=== PATIENT | male | born 1930 | race Caucasian/White ===

== ENCOUNTER → 2017-05-05 | Outpatient (CLI) | payer OTHER ==
[~2017-05-05] MED LIST: CHLORTHALIDONE25 MG PO; FOLIC ACID1 MG PO; LOVASTAT20 PO; MOBIC7.5 MG PO; NORCO 5-325 TA1 EAC1 PO
== END ==
LOC: SPEECH 05-01 07:35 → RAD 10:46 → SPEECH 10:46
DX: R13.10 Dysphagia, unspecified (principal)

== ENCOUNTER → 2017-05-22 | Outpatient (CLI) | payer OTHER ==
[~2017-05-22] VITALS: Ht 170.2 cm; Wt 77.1 kg
[~2017-05-22] MED LIST changes: +ASPIRIN325 PO; +BROMSITE5 ML OPHTHALMIC; +CENTRUM SILVER1 EAC4 PO; +CINNAMON500 MG PO; +CITRACAL SOFT1 EACH PO; +GARLIC500 M1 PO; +IRON325 M1 PO; +KEFLEX500 MG PO; +LIPITOR 20 MG T20 M1 PO; +MILK THISTLE500 MG PO; +OMEGA-31000 M1 PO; +PRED FORTE 1% EY5 M1 OP; +PREVAGEN PO; +RED YEAST RICE600 MG PO; +TYLENOL325 MG PO; +VITAMIN B COMP1 EACH PO; +VITAMIN B-12500 MCG PO; +VITAMIN D-32000 UNIT PO
--- NOTE | ~2017-05-22 | P ---
[facility] [place] [address] PROCEDURE REPORT Name: FE GOOD Room #: REG [facility]#: [id number] Admission: 05/22/17 Attend Phys: Joey Lin MD Discharge: Date of : 31 Report #: [id number] THIS REPORT FOR: //name// CC: Joey Engel DO BRIEF HISTORY: The patient is an 86-year-old male, who was recently found to have iron deficiency anemia. It is noted he does use meloxicam. PREOPERATIVE DIAGNOSIS: Iron deficiency anemia. POSTOPERATIVE DIAGNOSES: 1. Mild erythematous gastritis. 2. Moderately large duodenal diverticulum. MEDICATIONS: Deep sedation with propofol per anesthesia. SPECIMEN: Biopsies small bowel, rule out celiac disease. ESTIMATED BLOOD LOSS: 3 mL. PROCEDURE: EGD with biopsy. FINDINGS: Prior to propofol sedation, procedure of upper endoscopy was discussed with the patient as well as potential risks and its complications. He indicates he understands and desires to proceed. DESCRIPTION OF PROCEDURE: With the patient in left lateral decubitus position, the [employer] video endoscope was inserted in the cervical esophagus under direct vision without difficulty. Examination of this organ through its entire length revealed normal esophageal mucosa throughout the length of the esophagus. No ulcers or erosions were seen. The squamocolumnar junction was unremarkable. There is no evidence of Triana mucosa. A hiatus hernia was not seen. Scope was advanced in the stomach, which was examined on end view as well as retroflexed views. There was some redness in the antrum of stomach, but the mucosa was intact. No ulcers, erosions or bleeding lesions were seen. Upon retroflexion, no abnormalities were noted. Hernia was not seen. No bleeding lesions were seen. The pylorus was normal. Duodenal bulb was normal. Duodenal sweep down to the fourth portion was normal with the exception of moderate large duodenal diverticulum in the second portion of duodenum. The mucosa was intact. In view of his iron deficiency anemia, biopsies were obtained to evaluate for celiac disease. At that point, the scope was slowly withdrawn and careful circumferential views confirmed the above findings. The patient tolerated the procedure well. CONDITION OF THE PATIENT UPON DISCHARGE: Following procedure, the patient [address] [address] PROCEDURE REPORT Name: EF GOOD Room #: REG [facility]#: [id number] Admission: 05/22/17 Attend Phys: Joey Lin MD Discharge: Date of : 31 Report #: [id number] drowsy and prepared for colonoscopy. INSTRUCTIONS TO THE PATIENT AND FAMILY AT THE TIME OF DISCHARGE: We will follow up on biopsies obtained today. I do not see any bleeding lesions. We will proceed with colonoscopy at this time. <ELECTRONICALLY SIGNED> By: Joey Lin MD 05/22/17 1225 [id number] 1206 Joey Lin MD /nt
--- NOTE | ~2017-05-22 | P ---
[facility] [place] [address] PROCEDURE REPORT Name: FE GOOD Room #: REG [facility]#: [id number] Admission: 05/22/17 Attend Phys: Joey Lin MD Discharge: Date of : 31 Report #: [id number] THIS REPORT FOR: //name// CC: Joey Engel DO BRIEF HISTORY: The patient is an 86-year-old male who was recently found to have an iron deficiency anemia. PREOPERATIVE DIAGNOSIS: Iron deficiency anemia. POSTOPERATIVE DIAGNOSES: 1. Ulcerated mass lesions, distal transverse colon. 2. Multiple sessile colon polyps. 3. Moderate diverticulosis coli, greater left colon than right colon. MEDICATIONS: Deep sedation with propofol per anesthesia. SPECIMEN: 1. Biopsy of proximal transverse colon polyp. 2. Biopsy of ulcerated malignant appearing distal transverse colon polyp. 3. Biopsy of distal transverse ulcerated mass. 4. Biopsy of polyp at 50 cm. 5. Biopsy of polyp at 40 cm. ESTIMATED BLOOD LOSS: 3 mL. PROCEDURE: Colonoscopy to cecum and terminal ileum with biopsy and Lori ink injection. FINDINGS: Prior to propofol sedation, procedure of colonoscopy discussed with the patient. He had been seen in the office recently. He indicates that he understands and desire that we proceed. DESCRIPTION OF PROCEDURE: With the patient in left lateral decubitus position, digital examination was completed which revealed no abnormalities. Subsequently, the [employer] video colonoscope was introduced into the rectum and advanced under direct vision to the cecum. This was done with minimal difficulty. The cecum was identified by the appendiceal orifice and ileocecal valve. I was able to visualize the distal segment of terminal ileum, which was inspected and noted to be unremarkable. At that point, the scope was slowly withdrawn and careful circumferential views obtained including retroflexing the scope in the ascending colon. As we withdrew the scope, the mucosa was inspected. It is noted that upon introduction of the scope, an ulcerative mass lesions were seen. Starting from the cecum as we withdrew the scope proximally, a couple diminutive polyps seen in the ascending colon were not thought to be [facility] [address] [place] [address] PROCEDURE REPORT Name: FE GOOD Room #: REG [facility].#: [id number] Admission: 05/22/17 Attend Phys: Joey Lin MD Discharge: Date of : 31 Report #: [id number] relevant to the patient's clinical health issues at this time and therefore they were not biopsied or removed. They had a typical appearance, may be small diminutive adenomas. However, in the proximal transverse colon, a sessile polyp was seen and was probably in the range of 1.5 cm. It had a smooth and benign appearance. This polyp potentially is manageable with endoscopic removal; however, once again, it was felt that removing this lesion would not have any impact on the patient's overall health status at this point due to the ulcerated mass lesion. This ulcerated mass lesion was found in the distal transverse colon. It was not obstructing, but it involved about 50% of the lumen. It was ulcerated. It was somewhat friable, but not actively bleeding. It appeared malignant and is most likely a colon carcinoma. Multiple biopsies were obtained. Following biopsies, 2 tattoos were placed lateral to the mass site. In the descending colon at 50 cm, 2 cm sessile polypoid mass lesions were seen. It had a smooth and benign appearance. This one is little larger than the one in the proximal transverse colon and probably could be managed with the scope, but again it was felt not to be relevant at this point in time. Biopsies were obtained and tattoo hickman were placed as well. At 40 cm, a small sessile 1 to 1.5 cm polyp was seen and biopsied. Again, this would be amenable to endoscopic removal but was not removed today as not to put the patient at risk for post-polypectomy bleeding in view of the overall findings. In addition, he was noted to have mild severe diverticular disease mostly of the left colon, in particular the sigmoid colon. There were also scattered diverticula in proximal colon. Scope was withdrawn in the rectum and upon retroflexion, no abnormalities were seen. No other lesions were seen on this exam. Scope was withdrawn. The patient tolerated the procedure well. CONDITION OF THE PATIENT UPON DISCHARGE: Following procedure, the patient drowsy and he will be discharged home when fully ambulatory. INSTRUCTIONS TO THE PATIENT AND FAMILY AT THE TIME OF DISCHARGE: Unfortunate situation of an 86-year-old with iron deficiency anemia who is found to have multiple colon polyps and ulcerated mass lesion which is likely carcinoma. We will discuss further with the patient and family. History of dementia noted. Patient and family need to consider options such as surgical management of the ulcerated lesion. If they pursue more aggressive approach, we could potentially manage the other lesions with the scope if needed. Again, we will discuss further with the family. <ELECTRONICALLY SIGNED> By: Joey Lin MD 05/24/17 0658 1201 1252 Joye Lin MD /nt
--- NOTE | ~2017-05-22 | S ---
[facility] [place] [address] SURGICAL PATH RPT PROCEDURE Name: DANDY GOOD Room #: REG [facility]#: [id number] Admission: 05/22/17 Date of : 31 Discharge: Report #: [id number] Path Case #: [id number] PATHOLOGY REPORT COLLECTION DATE: 05/22/2017 RECEIVED DATE: 05/22/2017 SUBMITTING PHYS: Dr. Joey Lin OTHER PHYS: Dr. Bernard Engel SPECIMEN(S) RECEIVED: A.Small bowel bx B.Bx at transverse colon proximal C.Bx at distal transverse D.Bx at polyp descending colon 50 cm E.Bx of polyp at 40 cm * * * * * * * * * * * * FINAL DIAGNOSIS: A. Small bowel mucosa, "small bowel," endoscopic biopsy: - No significant diagnostic abnormalities present. B. Large intestine, biopsy at transverse colon proximal, endoscopic biopsy: - Tubular adenoma. - Negative for high-grade dysplasia. C. 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 D. Polyp, descending colon 50 cm, endoscopic biopsy: - Tubular adenoma. - Negative for high-grade dysplasia. E. Polyp, at 40 cm, endoscopic biopsy: - Tubular adenoma. - Negative for high-grade dysplasia. COMMENT: Part C is co-reviewed by Dr. Hannah Calderon, who concurs with my diagnosis. Findings of the "distal transverse" colon biopsy tissue were discussed with Dr. Joey Lin at approximately 12:00 p.m. on 05/23/17. MSI panel (four immunohistochemical stains) are ordered on block C per [place] [facility] Protocol, and the results of these will be reported in an addendum to follow. (IUV:mgr; 05/23/2017) PATHOLOGIST: Germaine Da Silva M.D. REPORT ELECTRONICALLY SIGNED BY: Germaine Da Silva M.D. [address] [address] SURGICAL PATH RPT PROCEDURE Name: DANDY GOOD Room #: [facility]#: [id number] Admission: 05/22/17 Date of : 31 Discharge: Report #: [id number] Path Case #: [id number] DATE/TIME: 05/23/2017 18:47 * * * * * * * * * * * * GROSS PATHOLOGY: A. Received in formalin labeled "Dandy Worfausto, small bowel BX," are five segments of booth soft tissue measuring 1.2 x 0.8 x 0.3 cm in aggregate dimensions and ranging from 0.3 to 0.4 cm in maximum dimension. The specimen is submitted entirely in cassette A1. B. Received in formalin labeled "Dandy Worrel, BX at transverse colon proximal," are three segments of booth soft tissue measuring 0.7 x 0.6 x 0.3 cm in aggregate dimensions and ranging from 0.3 to 0.3 cm in maximum dimension. The specimen is submitted entirely in cassette B1. C. Received in formalin labeled "Dandy Worfausto, BX at the distal transverse ulcerative mass," are three segments of booth soft tissue measuring 0.6 x 0.7 x 0.4 cm in aggregate dimensions and ranging from 0.3 to 0.3 cm in maximum dimension. The specimen is submitted entirely in cassette C1. D. Received in formalin labeled "Dandy Worrel, BX at polyp descending colon at 50 cm," are five segments of booth soft tissue measuring 1.0 x 0.8 x 0.3 cm in aggregate dimensions and ranging from 0.2 to 0.4 cm in maximum dimension. The specimen is submitted entirely in cassette D1. E. Received in formalin labeled "Dandy Worrel, BX of polyp at 40 cm," are two segments of booth soft tissue measuring 0.6 x 0.4 x 0.2 cm in aggregate dimensions and ranging from 0.3 to 0.4 cm in maximum dimension. The specimen is submitted entirely in cassette E1. (TSD; 05/22/2017) CLINICAL HISTORY: Pre-Op diagnosis: Anemia, blood in stool Post-OP diagnosis: Ulcerative colon mass, diverticulosis, colon polyps INITIAL CPT CODE(S): A; 76986 B; 39274 C; 91953, 13762, 08943, 23687, 05571 D; 07035 E; 69352 Professional services performed by [facility] at [address] [place] [address] Technical services performed by [facility] at [address] [place] [address], [address] [address]. [address] [address] SURGICAL PATH RPT PROCEDURE Name: DANDY GOOD [id number] Admission: 05/22/17 Date of : 31 Discharge: Report #: [id number] Path Case #: [id number] [facility] [address] [place] [address] PHONE: [phone] DIRECTOR: Daniel Oseguera M.D. * * * END OF REPORT * * *
== END | disposition home or self-care (01) ==
LOC: GI 08:27
DX: C18.9 Malignant neoplasm of colon, unspecified (principal); D12.3 Benign neoplasm of transverse colon; D12.5 Benign neoplasm of sigmoid colon; K57.30 Diverticulosis of large intestine without perforation or abscess without bleeding; K29.70 Gastritis, unspecified, without bleeding; K57.10 Diverticulosis of small intestine without perforation or abscess without bleeding; I10 Essential (primary) hypertension; E78.5 Hyperlipidemia, unspecified; Z87.891 Personal history of nicotine dependence; Z98.42 Cataract extraction status, left eye; Z98.890 Other specified postprocedural states; Z79.82 Long term (current) use of aspirin; Z79.899 Other long term (current) drug therapy
CPT/HCPCS: 62110; 62900

== ENCOUNTER → 2017-06-05 | Outpatient (CLI) | payer OTHER | LOC: CAT 08:05 | PROVIDERS: Surgery | DX: C18.9 Malignant neoplasm of colon, unspecified (principal); K80.20 Calculus of gallbladder without cholecystitis without obstruction; K57.30 Diverticulosis of large intestine without perforation or abscess without bleeding; K40.90 Unilateral inguinal hernia, without obstruction or gangrene, not specified as recurrent; N40.1 Benign prostatic hyperplasia with lower urinary tract symptoms ==

== ENCOUNTER 2017-06-20 05:39 | Inpatient (IN) | payer OTHER ==
[~2017-06-20] VITALS: Ht 157.5 cm; Wt 65.8 kg
--- NOTE | ~2017-06-20 | S ---
[facility] [address] [place] [address] SURGICAL PATH RPT PROCEDURE Name: DANDY GOOD Room #: 412-P ADM IN M.R.#: [id number] Admission: 06/20/17 Date of : 31 Discharge: Report #: [id number] Path Case #: [id number] PATHOLOGY REPORT COLLECTION DATE: 06/20/2017 RECEIVED DATE: 06/20/2017 SUBMITTING PHYS: Dr. Vinay Rooney OTHER PHYS: Dr. Bernard Engel SPECIMEN(S) RECEIVED: A.Hernia sac B.Extended left hemicolectomy * * * * * * * * * * * * FINAL DIAGNOSIS: A. "Hernia sac", hernia repair: - Vascularized fibroadipose connective tissue with mesothelial lining consistent with hernia sac showing reactive mesothelial hyperplasia and acute and chronic inflammation/ulceration. B. "Extended left hemicolectomy", resection: - Invasive adenocarcinoma, moderately differentiated, measuring 2.5 cm grossly, invading into but not through the muscularis propria (pT2); surgical margins free of invasive carcinoma, closest margin (proximal) 6.5 cm away. - Tubular adenomas, multiple, measuring 1.3 cm grossly, without high-grade dysplasia; margins free of dysplasia. - Diverticulosis. - Lymph nodes (22) with no evidence of metastatic carcinoma. (22 nodes) (CLW:renee; 06/24/2017) SYNOPTIC CANCER STAGING REPORT SPECIMEN Specimen: Transverse colon Descending colon Procedure: Other: extended left hemicolectomy TUMOR Primary Tumor Site: Transverse colon Histologic Type: Adenocarcinoma Histologic Grade: Low-grade (well differentiated to moderately differentiated) Tumor Size: Greatest dimension (cm): 2.5 Additional Dimension (cm): 1.7 Tumor Deposits: Not identified Tumor Extent [address] [address] SURGICAL PATH RPT PROCEDURE Name: DANDY GOOD Room #: 412-P [facility] IN [facility].#: [id number] Admission: 06/20/17 Date of : 31 Discharge: Report #: [id number] Path Case #: [id number] Site(s) of Direct Extent of Tumor: None identified Microscopic Tumor Extension: Tumor invades muscularis propria Macroscopic Tumor Perforation: Not Identified Accessory Tumor Findings Lymph-Vascular Invasion: Not identified Perineural Invasion: Not identified MARGINS All margins uninvolved by invasive carcinoma Distance of Invasive Carcinoma from Closest Margin: Specify (cm): 6.5 Specify Margin: Proximal For Resection Specimens Only Proximal Margin: Uninvolved by invasive carcinoma Distal Margin: Uninvolved by invasive carcinoma Distance of Tumor from Margin (required only for rectal tumors): Specify (cm): 6.5 Circumferential (Radial) Margin: Not applicable Mesenteric Margin: Not applicable LYMPH NODES Regional Lymph Nodes: Number of Lymph Nodes Examined: Specify number: 22 Number of Lymph Nodes Involved: Specify number: 0 STAGE (PTNM) Primary Tumor (pT): pT2: Tumor invades muscularis propria Regional Lymph Nodes (pN): pN0: No regional lymph node metastasis ADDITIONAL FINDINGS Additional Pathologic Findings: Adenoma(s) COMMENT: The patient has a history of "invasive moderately differentiated colonic adenocarcinoma associated with tubular adenoma and extensive high-grade dysplasia" from a distal transverse endoscopic biopsy ([id number]). Clinical correlation is recommended. (CLW:renee; 06/24/2017) PATHOLOGIST: Hannah Calderon M.D. REPORT ELECTRONICALLY SIGNED BY: Hannah Calderon M.D. DATE/TIME: 06/24/2017 19:36 * * * * * * * * * * * * GROSS PATHOLOGY: A. Received in formalin labeled "Dandyantonio Good, hernia sac," [place] [address] SURGICAL PATH RPT PROCEDURE Name: DANDY GOOD Room #: 412-P [facility] IN M.R.#: [id number] Admission: 06/20/17 Date of : 31 Discharge: Report #: [id number] Path Case #: [id number] piece of fibroadipose tissue measuring 3.2 x 2.3 x 1.1 cm. No nodules or lesions are identified. Benefits Analyst tissue is submitted in cassette A1. B. The specimen is received in formalin, labeled "Dandy Good, extended left hemicolectomy suture hickman proximal end" is a subtotal colectomy specimen measuring 51.8 cm in length with diameters ranging from 1.5-4.1 cm. Each margin is closed with a line of laci. The proximal margin is marked with a black suture. The lumen contains brown green soft fecal material. The mucosa is remarkable for three separate lesions. The most proximal lesion is located 6.5 cm from the proximal margin and measures 2.5 x 1.7 cm and is raised up to 0.4 cm off the mucosal surface. There is a booth-brown, ragged, focally ulcerated appearance. Lesion focally extends into the muscularis layer. The lesion grossly extends to within 4.5 cm of the closest radial margin. The second lesion is located 17.5 cm from the proximal margin and consists of a thickened, nodular fold of mucosa measuring 1.3 x 0.7 x 0.5 cm. The lesion has a booth, focally indurated cut surface and focally extends into the submucosal layer. No additional abnormalities are noted with this lesion. The third lesion is located 24.1 cm from the distal margin and consists of a pink-red, nodular, rubbery lesion measuring 1.3 x 0.5 x 0.5 cm. The cut surface of the lesion does not show any focal gross invasion. The remaining mucosa is booth-he, velvety and shows its normal semi-lunar folds. Several diverticula are noted measuring up to 1.7 cm. No gross rupture is identified. Several possible lymph nodes are noted in the surrounding adipose tissue measuring up to 0.5 cm. No additional abnormalities are noted. Benefits Analyst sections are submitted as follows: B1 - proximal margin B2 - distal margin B3 - radial margin B4-B5 - most proximal lesion B6 - second described lesion, bisected, entirely submitted B7-B8 - third described lesion, bisected, entirely submitted B9 - marketing sales representative sections of proximal bowel B10 - represents sections of distal bowel B11 - diverticula B12-B13 - five possible lymph nodes, each cassette B14-B16 - four possible lymph nodes, each cassette (Mamadou; 06/23/2017) CLINICAL HISTORY: Malignant neoplasm of colon INITIAL CPT CODE(S): [facility] [place] [address] SURGICAL PATH RPT PROCEDURE Name: FLORENTINODANDY K Room #: 412-P ADM IN M.R.#: [id number] Admission: 06/20/17 Date of : 31 Discharge: Report #: [id number] Path Case #: [id number] A; [id number] B; [id number] Professional services performed by [facility] at [facility] [address], [place] [address] Technical services performed by [facility] at [address] [place] [address], [place] [address]. [facility] [address] [place] [address] PHONE: [phone] DIRECTOR: Daniel Oseguera M.D. * * * END OF REPORT * * *
--- NOTE | ~2017-06-20 | O ---
[address] [address] OPERATIVE REPORT Name: FE GOOD Room #: 412-P ADM IN M.R.#: [id number] Admission: 06/20/17 Attend Phys: Vinay Rooney MD, F Discharge: Date of : 31 Report #: [id number] THIS REPORT FOR: //name// CC: Joey Barney DATE OF SERVICE: 06/20/2017 SURGEON: Vinay Rooney MD MANAGER SOCIAL WORK: Danny Small DO SECOND TEMPORARY OFFICE ASSISTANT: Megan Calero NP PREOPERATIVE DIAGNOSES: 1. Splenic flexure colonic invasive adenocarcinoma. 2. Umbilical hernia. 3. Diabetes mellitus. 4. Hypertension. 5. Aortic stenosis. 6. Dementia. 7. Diverticulosis. POSTOPERATIVE DIAGNOSES: 1. Proximal transverse colon invasive adenocarcinoma. 2. Extensive intra-abdominal adhesions. 3. Incarcerated umbilical hernia. 4. Diabetes mellitus. 5. Hypertension. 6. Aortic stenosis. 7. Dementia. 8. Chronic sigmoid diverticulitis. PROCEDURE: 1. Laparoscopic extended left hemicolectomy with end-ascending colostomy. 2. Extensive laparoscopic lysis of adhesions. 3. Primary repair of incarcerated umbilical hernia. ANESTHESIA: General endotracheal anesthesia and local anesthetic. ESTIMATED BLOOD LOSS: 10 mL. SPECIMEN: Transverse colon to rectosigmoid junction. [address] [address] OPERATIVE REPORT Name: FE GOOD Room #: 412-P [facility] IN [facility]#: [id number] Admission: 06/20/17 Attend Phys: Vinay Rooney MD, F Discharge: Date of : 31 Report #: [id number] COMPLICATIONS: None appreciated. INDICATIONS FOR PROCEDURE: This is an 86-year-old male patient of Dr. Blanca Inman who was found to have iron deficiency anemia. His fecal occult blood test was positive, although he denies having had any bright red blood per rectum. He had complained of dizziness and a 15-pound weight loss over [address] Lin performed a colonoscopy revealing an ulcerated mass felt to be located in the distal transverse colon, highly suspicious for colon cancer as well as a more distal sessile polyp, and pandiverticulosis. The mass and the polyp were tattooed. The patient has a positive family history for colon cancer in his sister. His biopsies revealed an invasive moderately differentiated adenocarcinoma with tubular adenoma and extensive high-grade dysplasia. The patient presents now for laparoscopic extended left hemicolectomy. OPERATIVE FINDINGS: Upon entrance into the abdominal cavity, the patient had moderate intra-abdominal adhesions. He has a history of having undergone an open Meckel's diverticulectomy through a right paramedian incision. After taking down the adhesions in order to place ports, an incarcerated umbilical hernia was identified containing both omental fat and abdominal wall fat. The defect itself was 1.5-2 cm in diameter. The patient's distal tattoo barbra was initially seen in the splenic flexure and this was initially felt to represent the proximal tattoo barbra. The patient also had chronic diverticulitis changes involving his sigmoid colon. After dissecting this free, dividing the colon at the rectosigmoid junction, and dissecting along the white line of Toldt to free the descending colon, with a more proximal dissection, a tattoo was identified at the hepatic flexure. This was now felt to represent more proximal tattoo with the sessile polyp marking the more distal sessile polyp. In order to achieve 8-10 cm of margin, the colon was divided at the distal ascending colon. This was not able to easily be mobilized and anastomosed to the rectum. I broke scrub and discussed with the family that the patient would require a colostomy. An end-ascending colostomy was performed as a result. No other significant intraabdominal pathology was identified. The patient's liver and small bowel appeared otherwise normal. At the conclusion of the operation, the sponge, needle, and instrument counts were correct. DESCRIPTION OF PROCEDURE IN DETAIL: After the risks, benefits, and expectations of the operation were discussed in detail with the patient and his family, informed consent was obtained. The patient was identified in preoperative holding area. He was given IV antibiotics as documented in the chart in line with SCIP metrics. The patient was then taken to the operating room and he was placed in the supine position. SCDs were placed on the patient's bilateral lower extremities and pneumatic compression was initiated. The patient was then given IV sedation and he was intubated without incident. His arms were tucked and he was secured to the table with a beanbag. He was placed in the low lying dorsal lithotomy position in [facility]. An indwelling Hidalgo catheter [address] [address] OPERATIVE REPORT Name: FE GOOD Room #: 412-P [facility] IN M.R.#: [id number] Admission: 06/20/17 Attend Phys: Vinay Rooney MD, F Discharge: Date of : 31 Report #: [id number] was present prior to the patient's arrival to the hospital. The patient's abdomen was then prepped and draped in the standard sterile fashion. A time-out was performed to identify the correct patient and procedure. Local anesthetic was infiltrated into the skin and subcutaneous tissue in the left mid abdomen where a small transverse incision was made. A 5 mm Visiport was placed intraperitoneally with a 0-degree angled laparoscope. Pneumoperitoneum was then achieved with insufflation of carbon dioxide to 15 mmHg. A 30-degree angled laparoscope was inserted. The dissection was carried out to clear adhesions to the anterior abdominal wall. The umbilical hernia defect was identified. Local anesthetic was infiltrated into the skin and subcutaneous tissue infraumbilically for 5 mm incision following the skin lines. The Visiport was placed intraperitoneally under direct visualization. Using this port, I was able to clear more adhesions to place a port in the suprapubic area. A small transverse incision was made in this area using a similar technique. A 5-mm port was placed. Adhesions were taken down in the right lower quadrant to place a 12 mm port using a similar technique. The patient was placed in the Trendelenburg position, rotated to his right. A tattoo barbra has been seen at the splenic flexure and this was assumed to be the more proximal tattoo barbra. Dissection was carried out around the rectosigmoid junction with the 5 mm laparoscopic EnSeal energy device. The mesentery was opened and a window was made adjacent to the rectosigmoid junction. A powered blue load endoscopic FABIAN 65 mm stapler was then used to staple and divide the colon in this area. The EnSeal device was then used to take down the mesentery including the inferior mesenteric artery. This was taken near the base of its origin. Dissection continued and care was taken to ensure that the left ureter was protected. The white line of Toldt was then dissected. Dissection was carried out around the splenic flexure. The patient was then placed in reverse Trendelenburg position and levelled. I attempted to define my proximal transection point, and while doing so, a tattoo barbra was seen just distal to the hepatic flexure of the colon. I carried my dissection over to this area while taking down the greater omentum and entering the lesser sac. The division of the mesentery continued. I elected to break scrub at this point and I discussed further with the patient's family. Decision was made to attempt to avoid colostomy creation if possible; however, the patient's family was informed that an anastomosis between the ascending colon and rectum would be quite difficult and may have limited blood supply as well as limited function. Upon my return to the operating room, I divided the middle colic artery near its origin with the EnSeal device with good hemostasis. Dissection continued over to the hepatic flexure. The duodenum was identified and protected throughout the operation. The white line of Toldt was then dissected along the right pericolic gutter up to the hepatic flexure. The colon was freed up to this area including the mesentery and surrounding attachments. This area was then grasped with a wavy grasper. The abdominal cavity was desufflated. [address] [address] OPERATIVE REPORT Name: FE GOOD Room #: 412-P [facility] IN M.R.#: [id number] Admission: 06/20/17 Attend Phys: Vinay Rooney MD, F Discharge: Date of : 31 Report #: [id number] A periumbilical incision was made around the patient's umbilicus on the left with a sharp #10 blade scalpel. Electrocautery was used to dissect through the subcutaneous tissue down to the fascia. The fascia was then opened along the length of the incision to include the umbilical hernia defect. The Oleg wound protector was then placed within the opening. The mobilized colon was delivered through the wound protector using the wavy grasper. The colon was then divided with the blue load FABIAN stapler. The mesentery was divided with the EnSeal device with good hemostasis. The Oleg retractor was then replaced and I attempted to swing the stapled end of the ascending colon down to the pelvis with no success. The Oleg cover was then removed and the abdominal cavity was again desufflated. An appropriate site was chosen for the ascending colostomy to the right of the umbilicus through the rectus muscle. A circular incision was made through the paramedian scar. Dissection was carried down to the fascia. A cruciate incision was then made in the fascia and 3 finger stretch was performed to enter the abdominal cavity. The stapled end of the ascending colon was then delivered through the opening. The orientation of the mesentery was maintained. The abdominal cavity was reinsufflated and laparoscopically, there was no evidence of twisting of mesentery. The abdominal cavity was again desufflated and the Oleg retractor was removed after irrigation and suction of the abdominal cavity to ensure good hemostasis. The midline abdominal wall fascia was then closed with a running #1 PDS suture. A running 4-0 Monocryl subcuticular suture was used to close the skin. The 5 mm port site skin incisions were closed with interrupted subcuticular 4-0 Monocryl sutures as well. The 12 mm port in the right lower quadrant of the abdomen was closed from the outside with a [id number] 0 PDS suture. Interrupted subcuticular 4-0 Monocryl sutures were used to close this incision as well. Dermabond was applied to each incision. The colostomy was matured next. The staple line was excised. Katarzyna-type sutures of 2-0 Vicryl were placed at the 12, 3, 6, and 9 o'clock positions. Short runs of the 2-0 Vicryl suture with full thickness bites of the colon were then used to complete the maturation of the stoma. The stoma was palpably patent beyond the fascia level. There was good hemostasis and the stoma itself appeared viable. A 2 piece colostomy appliance was then placed after cleansing and drying the patient's abdomen. The patient tolerated the procedure well. He was awakened, extubated, and taken to the recovery room in stable condition with no apparent intraoperative complications. <ELECTRONICALLY SIGNED> By: Vinay Rooney MD, FACS 06/23/17 1349 [id number] Vinay Rooney MD, FACS /nt
[~2017-06-20 05:39] MED LIST changes: +PRED FORTE 1% EY5 M1 OPHTHALMIC
[2017-06-20 08:30] LABS: HEMATOCRIT 33.8 % (42.0-52.0); HEMOGLOBIN 11.7 gm/dL (14.0-18.0); MCH 30.5 pg (26.0-34.0); MCHC 34.6 g/dL (28.0-37.0); MCV 88.2 fL (80.0-100.0); RBC 3.83 mil/uL (4.50-6.00); RDW 14.4 % (10.5-14.5); WBC 6.9 thou/uL (4.0-11.0)
[2017-06-20 08:42] LABS: CALCIUM 9.9 mg/dL (8.5-10.1); CREATININE 1.1 mg/dL (0.7-1.3); POTASSIUM 3.4 mmol/L (3.5-5.1)
[2017-06-20 09:18] VITALS: BP 112/49
[2017-06-20 16:45] VITALS: BP 168/56
[2017-06-20 17:15] VITALS: BP 138/52
[2017-06-20 17:45] VITALS: BP 146/48
[2017-06-20 18:45] VITALS: BP 131/45
[2017-06-21] VITALS (7 sets, daily range): BP systolic 101–147; BP diastolic 40–72
[2017-06-21 04:47] LABS: HEMATOCRIT 27.7 % (42.0-52.0); MCH 30.3 pg (26.0-34.0); MCV 89.2 fL (80.0-100.0); PLATELET COUNT 155 thou/uL (150-400); WBC 9.5 thou/uL (4.0-11.0)
[2017-06-21 04:51] LABS: HEMOGLOBIN 9.4 gm/dL (14.0-18.0); MANUAL DIFF YES
[2017-06-21 05:03] LABS: CALCIUM 8.7 mg/dL (8.5-10.1); CREATININE 1.2 mg/dL (0.7-1.3); POTASSIUM 3.5 mmol/L (3.5-5.1)
[2017-06-21 05:33] LABS: ABSOLUTE NEUTROPHILS 8.4 thou/uL (1.4-8.2); ANISOCYTOSIS SLIGHT; TOTAL CELL COUNT 100
[2017-06-21 10:19] LABS: % SATURATION 8 % (20-39); IRON 17 ug/dL (65-175); TIBC 203 ug/dL (250-450); UIBC 186 ug/dL
[2017-06-22 03:50] LABS: ABSOLUTE NEUTROPHILS 3.9 thou/uL (1.4-8.2); BASOPHILS 0.3 % (0.0-2.0); EOSINOPHILS 2.2 % (0.0-3.0); HEMATOCRIT 28.4 % (42.0-52.0); HEMOGLOBIN 9.7 gm/dL (14.0-18.0); LYMPHOCYTES 17.3 % (24.0-44.0); MCH 30.5 pg (26.0-34.0); MCHC 34.3 g/dL (28.0-37.0); MCV 89.1 fL (80.0-100.0); MONOCYTES 10.3 % (1.0-8.0); PLATELET COUNT 152 thou/uL (150-400); POLYS 69.9 % (36.0-66.0); RBC 3.18 mil/uL (4.50-6.00); RDW 14.3 % (10.5-14.5); WBC 5.5 thou/uL (4.0-11.0)
[2017-06-22 04:05] LABS: ALBUMIN 2.6 g/dL (3.4-5.0); CREATININE 0.9 mg/dL (0.7-1.3); MAGNESIUM 1.9 mg/dL (1.8-2.4); POTASSIUM 3.9 mmol/L (3.5-5.1); TOTAL BILIRUBIN 0.7 mg/dL (<0.1-1.0); TOTAL PROTEIN 5.7 g/dL (6.4-8.2)
[2017-06-22 04:20] VITALS: BP 142/47
[2017-06-22 06:00] LABS: MANUAL DIFF NO
[2017-06-22 08:00] VITALS: BP 150/65
[2017-06-22 17:51] VITALS: BP 125/40
[2017-06-22 19:35] VITALS: BP 155/61
[2017-06-23 04:08] VITALS: BP 151/64
[2017-06-23 05:45] LABS: ABSOLUTE NEUTROPHILS 4.2 thou/uL (1.4-8.2); BASOPHILS 0.4 % (0.0-2.0); EOSINOPHILS 3.2 % (0.0-3.0); HEMATOCRIT 30.8 % (42.0-52.0); HEMOGLOBIN 10.6 gm/dL (14.0-18.0); LYMPHOCYTES 15.6 % (24.0-44.0); MCH 30.7 pg (26.0-34.0); MCHC 34.3 g/dL (28.0-37.0); MCV 89.5 fL (80.0-100.0); MONOCYTES 8.7 % (1.0-8.0); PLATELET COUNT 170 thou/uL (150-400); POLYS 72.1 % (36.0-66.0); RBC 3.43 mil/uL (4.50-6.00); RDW 13.9 % (10.5-14.5); WBC 5.9 thou/uL (4.0-11.0)
[2017-06-23 05:48] LABS: ALBUMIN 2.6 g/dL (3.4-5.0); CALCIUM 9.2 mg/dL (8.5-10.1); CREATININE 0.9 mg/dL (0.7-1.3); PHOSPHORUS 2.2 mg/dL (2.5-4.9)
[2017-06-23 05:51] LABS: MANUAL DIFF NO
[2017-06-23 07:45] VITALS: BP 137/55
[2017-06-23 20:15] VITALS: BP 154/69
[2017-06-24 04:30] VITALS: BP 131/54
[2017-06-24 08:00] VITALS: BP 111/57
[2017-06-24] MEDS ORDERED: FLOMAX0.4 MG PO (09:45)
[2017-06-24] MEDS ORDERED: TRAMADOL 50 MG50 MG PO (09:46)
[2017-06-24] MEDS ORDERED: LOPRESSOR25 PO (09:46)
[2017-06-24 15:39] VITALS: BP 114/59
[2017-06-24 20:00] VITALS: BP 151/59
[2017-06-25 06:06] VITALS: BP 136/58
[2017-06-25 09:22] VITALS: BP 140/48
[2017-06-25 16:00] VITALS: BP 124/96
[2017-06-25 19:49] VITALS: BP 147/57
[2017-06-26 03:15] VITALS: BP 125/49
[2017-06-26 07:42] VITALS: BP 144/57
== END 2017-06-26 17:34 | DRG 329 ==
LOC: 4N 05:39 → TBA 05:39 → PRE 10:19 → 4N 16:26
PROVIDERS: Hospitalist; Surgery
PROC: 0JN83ZZ Release Abdomen Subcutaneous Tissue and Fascia, Percutaneous Approach (ICD-10-PCS; principal; 2017-06-20)
PROC: 0WQF4ZZ Repair Abdominal Wall, Percutaneous Endoscopic Approach (ICD-10-PCS; principal; 2017-06-20)
PROC: 0D1K4Z4 Bypass Ascending Colon to Cutaneous, Percutaneous Endoscopic Approach (ICD-10-PCS; principal; 2017-06-20)
PROC: 0DTG4ZZ Resection of Left Large Intestine, Percutaneous Endoscopic Approach (ICD-10-PCS; principal; 2017-06-20)
DX: C18.4 Malignant neoplasm of transverse colon (principal); E43 Unspecified severe protein-calorie malnutrition; K42.0 Umbilical hernia with obstruction, without gangrene; E11.9 Type 2 diabetes mellitus without complications; I10 Essential (primary) hypertension; I35.0 Nonrheumatic aortic (valve) stenosis; F03.90 Unspecified dementia, unspecified severity, without behavioral disturbance, psychotic disturbance, mood disturbance, and anxiety; K66.0 Peritoneal adhesions (postprocedural) (postinfection); K57.90 Diverticulosis of intestine, part unspecified, without perforation or abscess without bleeding; R33.9 Retention of urine, unspecified; D64.9 Anemia, unspecified; E87.6 Hypokalemia; E78.5 Hyperlipidemia, unspecified; Z79.82 Long term (current) use of aspirin; Z79.899 Other long term (current) drug therapy; Z98.42 Cataract extraction status, left eye; Z98.41 Cataract extraction status, right eye; Z90.49 Acquired absence of other specified parts of digestive tract; Z87.891 Personal history of nicotine dependence; Z68.26 Body mass index [BMI] 26.0-26.9, adult
CPT/HCPCS: 10790; 50010; 50101; 50249; 50290; 50386; 50455; 50525; 50555; 50558; 50740; 50804; 51489; 52265; 53307; 54022; 54118; 55245; 56462; 56524; 56525; 56526; 56753; 57092; 62110; 62900; 70005

== ENCOUNTER 2017-09-03 11:25 | Inpatient (IN) | payer OTHER ==
[~2017-09-03] VITALS: Ht 162.6 cm; Wt 64.9 kg
[~2017-09-03 11:25] MED LIST changes: +BACTRIM DS TAB1 EAC1 PO; +BACTRIM DS TAB1 EACH PO; +CHLORTHALIDONE50 MG PO; +DIFLUCAN200 MG PO; +FLOMAX0.4 MG PO; +LOPRESSOR25 PO; +PROSCAR 5MG TABL5 MG PO; +SORINE 80 MG TA80 M1 PO; +TRAMADOL 50 MG50 MG PO
[2017-09-03 11:27] VITALS: BP 137/61
[2017-09-03 12:54] LABS: ABSOLUTE NEUTROPHILS 4.4 thou/uL (1.4-8.2); BASOPHILS 0.5 % (0.0-2.0); EOSINOPHILS 3.1 % (0.0-3.0); HEMOGLOBIN 9.8 gm/dL (14.0-18.0); LYMPHOCYTES 23.4 % (24.0-44.0); MCH 29.6 pg (26.0-34.0); MONOCYTES 7.6 % (1.0-8.0); PLATELET COUNT 164 thou/uL (150-400); POLYS 65.4 % (36.0-66.0); RBC 3.33 mil/uL (4.50-6.00); RDW 15.9 % (10.5-14.5); WBC 6.7 thou/uL (4.0-11.0)
[2017-09-03 12:55] LABS: MANUAL DIFF NO
[2017-09-03 13:03] LABS: INR 1.1; PROTIME 10.8 Seconds (9.3-11.4)
[2017-09-03 13:29] LABS: CALCIUM 9.7 mg/dL (8.5-10.1); POTASSIUM 3.9 mmol/L (3.5-5.1)
[2017-09-03 13:33] LABS: URINE BILIRUBIN NEGATIVE (Negative); URINE BLOOD 3+ (Negative); URINE COLOR YELLOW; URINE GLUCOSE-RANDOM* NEGATIVE (Negative); URINE KETONES NEGATIVE (Negative); URINE NITRITE POSITIVE (Negative); URINE PROTEIN (DIPSTICK) TRACE (Negative); URINE SPECIFIC GRAVITY >= 1.030 (1.003-1.035); URINE UROBILINOGEN 0.2 E.U./dl (0.2-1.0)
[2017-09-03 13:34] LABS: ALBUMIN 2.9 g/dL (3.4-5.0); TOTAL BILIRUBIN 0.6 mg/dL (<0.1-1.0); TOTAL PROTEIN 6.8 g/dL (6.4-8.2)
[2017-09-03 14:45] LABS: SQUAMOUS 0-3 Few /LPF (0-3)
[2017-09-03 14:46] LABS: BACTERIA >30 Many /HPF (None Seen); CASTS None Seen /LPF (None Seen); CRYSTALS None Seen /LPF (None Seen); URINE RBC 3-10 Few /HPF (0-2); URINE WBC >25 Many /HPF (0-5)
[2017-09-03 14:47] LABS: YEAST Present (None Seen)
[2017-09-03 16:58] VITALS: BP 139/59
[2017-09-03 17:14] VITALS: BP 170/66
[2017-09-03 18:04] VITALS: BP 155/48
[2017-09-03 19:29] VITALS: BP 150/48
[2017-09-03 19:30] VITALS: BP 150/48
[2017-09-04 03:47] VITALS: BP 161/56
[2017-09-04 03:52] LABS: HEMATOCRIT 30.4 % (42.0-52.0); HEMOGLOBIN 10.1 gm/dL (14.0-18.0); MCH 29.3 pg (26.0-34.0); MCHC 33.3 g/dL (28.0-37.0); MCV 87.9 fL (80.0-100.0); RBC 3.46 mil/uL (4.50-6.00); WBC 8.4 thou/uL (4.0-11.0)
[2017-09-04 08:00] VITALS: BP 142/60
[2017-09-04] MEDS ORDERED: CEFUROXIME250 MG PO (09:35)
== END 2017-09-04 13:00 | disposition home or self-care (01) | DRG 394 ==
LOC: ER 11:25 → EROBS 16:38 → 4S 16:38
PROVIDERS: Hospitalist; Nurse Practitioner Family
DX: K94.09 Other complications of colostomy (principal); N39.0 Urinary tract infection, site not specified; I10 Essential (primary) hypertension; R33.9 Retention of urine, unspecified; E78.5 Hyperlipidemia, unspecified; Y83.3 Surgical operation with formation of external stoma as the cause of abnormal reaction of the patient, or of later complication, without mention of misadventure at the time of the procedure; Z98.42 Cataract extraction status, left eye; Z98.41 Cataract extraction status, right eye; Z79.82 Long term (current) use of aspirin; Z79.899 Other long term (current) drug therapy; Z85.038 Personal history of other malignant neoplasm of large intestine
CPT/HCPCS: 10100

== ENCOUNTER 2017-09-14 02:46 | Inpatient (IN) | payer OTHER ==
[~2017-09-14] VITALS: Ht 170.2 cm; Wt 64.4 kg
--- NOTE | ~2017-09-14 | O ---
[facility] [place] [place] [address] OPERATIVE REPORT Name: FE GOOD Room #: 403-P [facility] IN M.R.#: [id number] Admission: 09/16/17 Attend Phys: Jesus Phipps MD Discharge: 09/18/17 Date of : 31 Report #: [id number] THIS REPORT FOR: //name// CC: Yamilet Rooney DATE OF SERVICE: 09/16/2017 SURGEON: Vinay Rooney M.D. COMPUTER PUBLISHER: None. PREOPERATIVE DIAGNOSES: 1. Prolapsed ascending colostomy. 2. Status post subtotal colectomy (the transverse, descending, and sigmoid colon) with colostomy for colon cancer. 3. Hyperlipidemia. 4. Anemia. POSTOPERATIVE DIAGNOSES: 1. Prolapsed ascending colon and cecum. 2. Status post subtotal colectomy (the transverse, descending, and sigmoid colon) with colostomy for colon cancer. 3. Hyperlipidemia. 4. Anemia. PROCEDURE: 1. Colostomy revision. 2. Ileostomy with ileocecectomy. ANESTHESIA: General endotracheal anesthesia and local anesthetic. ESTIMATED BLOOD LOSS: 25 mL. SPECIMEN: Cecum and ascending colon. COMPLICATIONS: None appreciated. INDICATIONS FOR PROCEDURE: This is an 86-year-old male patient who was found to have iron deficiency anemia and ultimately underwent a colonoscopy, showing an ulcerated mass as well as a more distal sessile polyp. The patient was taken to the operating room and underwent a subtotal colectomy of the sigmoid, descending, and transverse colon, leaving the ascending colon and cecum in place. A colostomy of the ascending colon was created. The patient has had [facility] [address] [place] [address] OPERATIVE REPORT Name: FE GOOD Room #: 403-P [facility] IN ..#: [id number] Admission: 09/16/17 Attend Phys: Jesus Phipps MD Discharge: 09/18/17 Date of : 31 Report #: [id number] difficulty with prolapse of his stoma on several different occasions and he was recently hospitalized for this. I was able to reduce the stoma; however, the patient returned on 09/14/2017 with the stoma. Once again, prolapsed and edematous. Despite this, he was putting out some liquid stool through the stoma, and the stoma itself did not appear to be ischemic. The patient presents now for colostomy revision. OPERATIVE FINDINGS: After dissecting the mucocutaneous junction and opening the side of the colon in order to straighten the colon, the prolapsed segment appeared to be the ascending colon and cecum. Resecting a small segment of the colon was not felt to be some beneficial, and thus, the remainder of the colon was resected which included the ascending colon and cecum. Terminal ileum remained. A small parastomal hernia was present, although there is no significant herniation of intra-abdominal content. Relocation of the stoma was not necessary. DESCRIPTION OF PROCEDURE IN DETAIL: After the risks, benefits, and expectations of the operation were discussed in detail with the patient and his , informed consent was obtained. The patient was identified in the preoperative holding area. He was given IV antibiotics as documented in the chart in line with the SCIP metrics. The patient was then taken to the operating room. He was placed in the supine position. SCDs were placed on the patient's bilateral lower extremities and pneumatic compression was initiated. The ostomy appliance was removed and the patient's abdomen was prepped and draped in the standard sterile fashion. A sharp #10 blade scalpel was used to make an incision at the mucocutaneous junction to free the colon in this area. Electrocautery was used to divide the tissue down to the wall of the colon. The evaginated colon was then reduced. This required opening the side of the colon slightly in order to do so. After doing this and straightening the colon, it was recognized that the entire remaining colon was what was prolapsed and that resection would be necessary. A window was made in the terminal ileum mesentery with electrocautery. The mesentery was then divided with the Ethicon x 1 EnSeal device with good hemostasis. The terminal ileum was divided in a full thickness fashion sharply with scissors. Katarzyna type 2-0 PDS sutures were placed at the 12, 3, 6, and 9 o'clock positions to include the fascial ring. After tying down these sutures, short runs of 2-0 Vicryl sutures were used to complete the maturation process in each quadrant of the stoma. The stoma was palpably patent beyond the fascial level after placing all sutures. A 2-piece stoma appliance was then placed. The patient tolerated the procedure well. He was awakened, extubated, and taken to the recovery room in stable condition with no apparent intraoperative complications. <ELECTRONICALLY SIGNED> By: Vinay Rooney MD, FACS 09/18/17 1654 0014 0148 Vinay Rooney MD, FACS /nt
--- NOTE | ~2017-09-14 | S ---
[facility] [place] [address] SURGICAL PATH RPT PROCEDURE Name: FE GOOD Room #: 403-P DIS IN M.R.#: [id number] Admission: 09/16/17 Date of : 31 Discharge: 09/18/17 Report #: [id number] Path Case #: [id number] PATHOLOGY REPORT COLLECTION DATE: 09/16/2017 RECEIVED DATE: 09/16/2017 SUBMITTING PHYS: Dr. Vinay Rooney OTHER PHYS: Dr. Jesus Engel SPECIMEN(S) RECEIVED: A.Cecum * * * * * * * * * * * * FINAL DIAGNOSIS: "Cecum," right hemicolectomy (completion total colectomy) and colostomy revision: - Colonic mucosa, submucosa, and muscular wall with marked submucosal edema, acute and chronic inflammation, patchy ulceration, and focal gland atrophy. (see comment) - Colonic mucosa transitioning to skin and subcutaneous tissue with reactive changes, fibrosis, chronic inflammation, and fresh hemorrhage consistent with prolapsed colostomy. - Small bowel mucosa with submucosal edema and mild acute and chronic inflammation. COMMENT: The acute and chronic inflammation, patchy ulceration, and focal gland atrophy is histologically compatible with early ischemic changes. Clinical correlation is recommended. No dysplasia is seen. (CLW:; 09/18/2017) PATHOLOGIST: Hannah Calderon M.D. REPORT ELECTRONICALLY SIGNED BY: Hannah Calderon M.D. DATE/TIME: 09/18/2017 16:39 * * * * * * * * * * * * GROSS PATHOLOGY: The Received in formalin labeled "Charmaine, cherry" and consists of a probable cecectomy specimen with cecum measuring 8.0 cm in length by a 5.4 cm in diameter and ileum measuring 3.3 cm in length by 2.1 cm in diameter. The appendix is absent. There is indurated and congested fat attached to specimen. The serosa is glistening, dark maroon, dark red, and he. The distal margin demonstrates bulging brown mucosa and a non-circumferential rim of booth skin that ranges in width from 0.1 cm to 0.3 cm. The proximal margin is opened. The [facility] [address] [place] [address] SURGICAL PATH RPT PROCEDURE Name: FE GOOD Room #: 403-P [facility].#: [id number] Admission: 09/16/17 Date of : 31 Discharge: 09/18/17 Report #: [id number] Path Case #: [id number] specimen is opened longitudinally revealing a markedly edematous, thickened, brown, booth, dark red maroon, and glistening mucosa. The ileocecal valve is dark maroon. The terminal ileum mucosa is hyperemic. The colonic muscularis propria is translucent, edematous, and ranges in thickness from 0.2 cm to 1.2 cm. There are no obvious mucosal masses identified. There are no enlarged lymph nodes, masses, or lesions within the contiguous mesentery. Die Cutting Machine Operator sections are submitted A1-A6. A1 proximal margin A2-A3 distal margin, perpendicular A4 ileocecal valve A5-A6 transmural sections of cecum, reimbursement representative (JEOVANNY; 09/17/2017) CLINICAL HISTORY: History of right hemicolectomy INITIAL CPT CODE(S): A; 13949 Professional services performed by [facility] at [facility] [address], [place] [address] Technical services performed by [facility] at [address] [place] [address], [address] [address]. [facility] [address] [place] [address] PHONE: [phone] DIRECTOR: Daniel Oseguera M.D. * * * END OF REPORT * * *
[~2017-09-14 02:46] MED LIST changes: +CEFUROXIME250 MG PO; +TYLENOL EXTRA500 MG PO
[2017-09-14 03:10] VITALS: BP 145/55
[2017-09-14 09:46] VITALS: BP 174/67
[2017-09-14 10:35] LABS: HEMATOCRIT 33.7 % (42.0-52.0); HEMOGLOBIN 11.1 gm/dL (14.0-18.0); MCHC 32.9 g/dL (28.0-37.0); MCV 88.3 fL (80.0-100.0); RBC 3.82 mil/uL (4.50-6.00); RDW 15.9 % (10.5-14.5); WBC 6.6 thou/uL (4.0-11.0)
[2017-09-14 10:49] LABS: ALBUMIN 2.8 g/dL (3.4-5.0); CALCIUM 9.5 mg/dL (8.5-10.1); CREATININE 0.8 mg/dL (0.7-1.3); POTASSIUM 3.7 mmol/L (3.5-5.1); TOTAL BILIRUBIN 0.6 mg/dL (<0.1-1.0); TOTAL PROTEIN 6.7 g/dL (6.4-8.2)
[2017-09-14 16:22] VITALS: BP 145/55
[2017-09-14 20:00] VITALS: BP 151/82
[2017-09-15 04:00] VITALS: BP 155/64
[2017-09-15 06:28] LABS: HEMATOCRIT 33.1 % (42.0-52.0); HEMOGLOBIN 10.9 gm/dL (14.0-18.0); MCHC 32.9 g/dL (28.0-37.0); MCV 88.2 fL (80.0-100.0); RBC 3.76 mil/uL (4.50-6.00); RDW 15.9 % (10.5-14.5); WBC 7.1 thou/uL (4.0-11.0)
[2017-09-15 06:43] LABS: ALBUMIN 2.4 g/dL (3.4-5.0); CREATININE 0.7 mg/dL (0.7-1.3); POTASSIUM 3.6 mmol/L (3.5-5.1); TOTAL BILIRUBIN 0.6 mg/dL (<0.1-1.0); TOTAL PROTEIN 5.9 g/dL (6.4-8.2)
[2017-09-15 08:00] VITALS: BP 144/57
[2017-09-15 16:20] VITALS: BP 155/49
[2017-09-15 20:22] VITALS: BP 130/64
[2017-09-16 04:45] VITALS: BP 170/63
[2017-09-16 08:40] VITALS: BP 156/69
[2017-09-16 17:30] VITALS: BP 142/44
[2017-09-16 18:00] VITALS: BP 136/59
[2017-09-16 20:30] VITALS: BP 128/89
[2017-09-17 01:10] VITALS: BP 114/47
[2017-09-17 04:22] VITALS: BP 104/45
[2017-09-17 08:06] VITALS: BP 159/59
[2017-09-17 16:36] VITALS: BP 121/44
[2017-09-17 20:00] VITALS: BP 136/47
[2017-09-18 04:00] VITALS: BP 140/52
[2017-09-18 06:44] LABS: HEMATOCRIT 32.9 % (42.0-52.0); HEMOGLOBIN 10.9 gm/dL (14.0-18.0); MCH 29.6 pg (26.0-34.0); MCHC 33.3 g/dL (28.0-37.0); MCV 88.9 fL (80.0-100.0); RBC 3.7 mil/uL (4.50-6.00); RDW 16.1 % (10.5-14.5); WBC 8.4 thou/uL (4.0-11.0)
[2017-09-18 10:15] VITALS: BP 162/62
[2017-09-18 11:44] VITALS: BP 162/62
[2017-09-18 11:57] VITALS: BP 162/62
[2017-09-18 12:55] VITALS: BP 162/62
[2017-09-18 15:32] VITALS: BP 162/62
== END 2017-09-18 15:55 | disposition home health service (06) | DRG 329 ==
LOC: 4N 02:46 → ENTRNSPT 09-18 15:52 → EDTRNSPTSTS 09-18 15:55 → 4N 09-18 15:55
PROVIDERS: Hospitalist
PROC: 0DTH0ZZ Resection of Cecum, Open Approach (ICD-10-PCS; principal; 2017-09-17)
PROC: 0D1B0Z4 Bypass Ileum to Cutaneous, Open Approach (ICD-10-PCS; principal; 2017-09-17)
DX: K94.09 Other complications of colostomy (principal); E43 Unspecified severe protein-calorie malnutrition; K63.4 Enteroptosis; Y83.3 Surgical operation with formation of external stoma as the cause of abnormal reaction of the patient, or of later complication, without mention of misadventure at the time of the procedure; E78.5 Hyperlipidemia, unspecified; I10 Essential (primary) hypertension; I25.10 Atherosclerotic heart disease of native coronary artery without angina pectoris; D64.9 Anemia, unspecified; H91.90 Unspecified hearing loss, unspecified ear; F03.90 Unspecified dementia, unspecified severity, without behavioral disturbance, psychotic disturbance, mood disturbance, and anxiety; Z98.42 Cataract extraction status, left eye; Z98.41 Cataract extraction status, right eye; Z87.891 Personal history of nicotine dependence; Z68.22 Body mass index [BMI] 22.0-22.9, adult; I25.2 Old myocardial infarction; Z85.038 Personal history of other malignant neoplasm of large intestine; Z79.82 Long term (current) use of aspirin; Z79.899 Other long term (current) drug therapy; Z82.49 Family history of ischemic heart disease and other diseases of the circulatory system
CPT/HCPCS: 10790; 50010; 50093; 50101; 50386; 56526; 57092; 62110; 62900; 70005

== ENCOUNTER 2018-02-02 11:04 | Emergency (ER) | payer OTHER ==
[~2018-02-02] VITALS: Ht 162.6 cm; Wt 69.0 kg
[~2018-02-02 11:04] MED LIST changes: +AUGMENTIN 875-1 EACH PO; +HYDROCODONE-AP1 EAC6 PO; +LEVSIN0.125 MG SUBLING; +PHENAZOPYRIDIN200 M2 PO; +PROBIOTIC1 EAC1 PO; +SORINE 80 MG TA80 MG PO
== END 2018-02-02 14:12 | disposition home or self-care (01) ==
LOC: ER 11:04
DX: L24.89 Irritant contact dermatitis due to other agents (principal); Z43.2 Encounter for attention to ileostomy; E78.5 Hyperlipidemia, unspecified; I10 Essential (primary) hypertension; Z86.2 Personal history of diseases of the blood and blood-forming organs and certain disorders involving the immune mechanism; Z98.890 Other specified postprocedural states

== ENCOUNTER 2019-03-30 16:55 | Inpatient (IN) | payer OTHER ==
[~2019-03-30] VITALS: Ht 162.6 cm; Wt 65.3 kg
[~2019-03-30 16:55] MED LIST changes: +NAMZARIC 14 MG1 EACH PO; +NEURONTIN 300300 M1 PO; +SENNA S TABLET1 EACH PO
[2019-03-31 00:32] VITALS: BP 139/78
--- NOTE | 2019-03-31 03:39 | NUR ---
PATIENT TRANSPORTED VIA TRANSPORTATION FROM [facility]. HE IS AN 88 YR OLD GENTLEMAN WITH HX OF DEMENTIA. RECORDS STATE THAT PT HAS HAD INCREASED CONFUSION AND BECOME COMBATIVE TOWARDS (DPOA), AND DAUGHTER SINCE BEGINNING A NEW MED, NAMZARIC. OVER A WEEK AGO BEGAN IT. PT ALSO BROKE HIS LEFT ARM 3 WEEKS AGO. 96HOUR HOLD AFFADAVIT FROM [facility] IN CHART. PATIENT IS DELUSIONAL, VISUAL HALLUCINATIONS, VERBAL THREATS TO OTHERS. PATIENT IN BED SINCE HE ARRIVED AROUND 1999. PATIENT ATTEMPTS TO GET OUT OF BED. ROOM MATE STATES HE'S AFRAID PT IS GOING TO KILL HIM BECAUSE HE KEEPS TELLING HIM HE'S BEING POISONED. LIMITED ASSESSMENT DONE D/T BEHAVIORS. TRAZADONE AND ZYPREXA PRN'S ORDERED AND GIVEN. PATIENT HAS URINAL AT BEDSIDE BUT STILL INCONTINENT. PT ALSO HAS COLOSTOMY IN PLACE FROM HX OF COLON CANCER. PORFIRIO CHANDRA NP NOTIFED OF ADMIT AND ALSO MICHAEL TOLEDO. PT SLEEPING AT THIS TIME. HE DOES HAVE DENTURES AND INSISTS ON WEARING HIS GLASSES IN BED. TELEPHONE CONSENT GIVEN BY SPOUSE WHO IS DPOA. SHE IS COMING IN 03/31/19 TO SIGN ALL OTHER ADMIT PAPERS. AMBULATION ASSESSMENT MAY NOT BE ACCURATE. GOING ON MR NOTES AND WAS UNABLE TO ASSESS THIS SHIFT. INVENTORY OF BELONGINGS DONE. UA, EKG ALL NEGATIVE. CONSULTS FOR PT,OT, AND DR SHARMA DONE.
[2019-03-31 09:20] VITALS: BP 172/82
--- NOTE | 2019-03-31 11:40 | NUR ---
Assess for low ran score of 9. Admitted to [facility] for confusion, dementia. No labs available. On FeSO4, folic acid, vitamin D and MVI. Chart review shows stable wt in 140s. No intake records yet, newly admitted. Assess as low nutrition risk at this time.
--- NOTE | 2019-03-31 13:42 | NUR ---
ASSUMED CARE THIS MORNING AT 0700. PT. CONFUSED, NEEDING HELP GETTING UP, DRESSED AND OUT FOR BREAKFAST. COOPERATIVE WITH VITAL SIGNS BEING TAKEN. HE WAS TAKENT TO THE BATHROOM, DRESSED AND OUT TO THE DINING ROOM. HE DID NOT OFFER ANY COMBATIVE BEHAVIORS TO STAFF. HIS AND DAUGHTER CAME TO SIGN CONSENT PAPER FOR THE PT. CHART. BOTH WERE COOPERATIVE WITH STAFF. PT. HAS ATE MEALS ON THE UNIT BUT DID NOT ATTEND GROUPS. INSTEAD, HE WENT BACK TO HIS ROOM AND LAYED DOWN ON HIS BED. STAFF TO HELP HIM WITH WALKING HE REMAINS UNSTEADY ON HIS FEET. NO SI/HI THOUGHTS VERBALIZED AND NO AVH NOTED/VOICED.
[2019-03-31 20:01] VITALS: BP 142/88
--- NOTE | 2019-03-31 21:55 | NUR ---
ASSUMED CARE OF THE PT AT 191 PM. ALERT ET ORIENTED X 2, MAKES NEEDS KNOWN. WALKS WITH A FAIRLY STEADY GAIT. HE CANNOT USE A WALKER BECAUSE OF THE CAST TO HIS LEFT ARM. THIS FUND RAISER WALKED WITH THE PT, HE TOOK HIS HS MEDICATIONS WITHOUT ANY DIFFICULTY. IS ASKING FOR A SLING FOR HIS ARM. DENIES ANXIETY, DEPRESSION, SI/HI, A/V HALLUNICATIONS. REMAINS ON 12 MINUTE CHECKS FOR HIS SAFETY.
--- NOTE | 2019-04-01 09:42 | NUR ---
SW schedule a family meeting on April 02, 2019 at 11:30am.
[2019-04-01 09:54] VITALS: BP 170/75
--- NOTE | 2019-04-01 13:49 | NUR ---
ASSUMED PATIENT CARE AT 0730. PATIENT ALERT TO NAME. COMPLIANT WITH MEDICATIONS, ASMINISTERED TWO-THREE AT A TIME, WHOLE WITH WATER. PATIENT HAD SPLINT LEFT ARM, WRAPPED WITH ADI BANDAGE. SLING APPLIED TO LEFT ARM AFTER LOCATING IN PATIENT'S ROOM. FLAT AFFECT, NO BEHAVIOR ISSUES TO DATE THIS SHIFT.
--- NOTE | 2019-04-01 22:08 | NUR ---
ASSUMED CARE OF THE PT AT 191 PM. ALERT ET ORIENTED X 2, PERSON AND PLACE. HAS A POSTERIOR SPLINT WITH AN ADI WRAP. THE PT IS WEARING A SLING. DENIES ANXIETY, DEPRESSION, A/V HALLUNICATIONS. HEART RATE REGULAR, LUNGS CLEAR BILAERALLY, RESP., EVEN, AND UNLABORED. HAS A COLOSTOMY WITH A BAG IN PLACE, WHICH WAS CHANGED THIS EVENING. REMAINS ON 12 MINUTE CHECKS FOR HIS SAFETY.
[2019-04-02 08:30] VITALS: BP 154/72
--- NOTE | 2019-04-02 12:25 | NUR ---
PATIENT IS UP AND OUT ON THE UNIT, AMBULATES WITH SLOW, UNSTEADY GAIT, AMBULATION SUPERVISED BY STAFF. PATIENT TOOK ALL HIS MORNING MEDICATION WHOLE WITHOUT DIFFICULTY. APPETITIE IS GOOD, PATIENT IS EATING 100% MEALS, HE IS DRINKING FLUID WELL. COLOSTOMY CARE PER STAFF. ADI WRAP AND SLING IN PLACE TO LEFT ARM. PATIENT DENIES SUICIDAL AND HOMOCIDAL IDEATION, HE DENIES AUDITORY/VISUAL HALLUCINATION. NO AGGRESSION OR AGITATION NOTED. PATIENT IS [place], HEARING AID IN PLACE TO KASSIE EAR. PATIENT DENIES HAVING PHYSICAL PAIN, CURRENTLY IN FAMILY MEETING WITH THE PSYCHIATRIST, AND CONTACT CENTER PROFESSIONAL, WILL MONITOR FOR SFETY.
--- NOTE | 2019-04-02 16:38 | NUR ---
LAILA sent a referral to [facility] [phone] (f) [phone] #1 choice, and [facility] [phone] (f) [phone] #2 choice. per family request. Pt was present during the family meeting and family reported his increased behaviors that are consistent with advanced dementia. Pt will need Medicaid assistance when moving to [facility] memory care.
[2019-04-02 19:36] VITALS: BP 180/73
--- NOTE | 2019-04-03 01:31 | NUR ---
Care assumed of patient at 1900: Patient resting in bed at start of shift. Patient chose to get up to have a snack in the day room. Patient confused and forgetful. Patient irritable, delusional, anxious. Patient alert and oriented to person only. Patient reports that he doesn't need to take any medications because his mother already gave him his medications before he left home. Patient did take his medications with much encouragement. Patient has not yet been to sleep this shift. Patient up wandering unit, sitting in day room or sitting in room. Staff has attempted to orientate and re-direct patient several times with no success. Patient feels that it is time for him to go to work, it is the afternoon, he has been asleep for the last 24 hours and doesn't need to sleep anymore. Patient provided PRN Trazodone 25mg po. Patient denies any pain or discomfort. No s/s of pain or discomfort observed.
--- NOTE | 2019-04-03 09:23 | H ---
[facility] [place] [address] [place] [address] HISTORY AND PHYSICAL Name: FE GOOD Room #: 518B-B ADM IN M.R.#: [id number] Admission: 03/30/19 ������������������ Attend Phys: Juanito Guardado DO Discharge: ������������������ Date of : 31 Report #: [id number] THIS REPORT FOR: //name// CC: Juanito Guardado Bernard Engel DATE OF SERVICE: 03/31/2019 INPATIENT PSYCHIATRIC EVALUATION DATE OF EVALUATION: 03/31/2019. ATTENDING PHYSICIAN: Juanito Guardado DO SUPPORT TEAM ASSOC: Keely Ramos APRN REASON FOR ADMISSION: The patient presented to the [facility] Emergency Room on 03/29/2019. There was a paucity of documentation from the ER visits. Apparently, the patient was brought by his daughter and there have been increasing agitation. Apparently, the patient has been combative, recently started Namzaric, which is Namenda and Aricept. The patient appears to have significant dementia. PMH/PSH/Social History is not available at this time ALLERGIES: No known allergies. HOME MEDICATIONS: Finasteride 5 mg p.o. at bedtime, atorvastatin 20 mg p.o. at bedtime, sotalol 40 mg p.o. b.i.d., multivitamin, folic acid 1 mg daily, ferrous sulfate 325 mg p.o. daily, cholecalciferol 2000 International Units daily, aspirin 325 mg p.o. daily, Senna-S 2 tabs p.o. b.i.d., gabapentin 300 mg t.i.d., trazodone 25 mg at bedtime, olanzapine which was ordered in the hospital. LABORATORY DATA: Laboratories from the last few days; H and H 10.9 and 31.6, white count 6.2, platelets 197. Blood gas done at [facility] was grossly normal with pH 7.432, pCO2 35, pO2 83.4, bicarb 22.8. Coags: PT 10.7, INR 1.0. Chemistries from [place] were lactic acid 1.4, down from 2.1 on admission. Additionally from 03/29/2019, sodium was 141, potassium 3.9, chloride 105, bicarb 26, anion gap 10, BUN 29, creatinine 1.1, estimated GFR 63, glucose is 196. Lactic acid as stated 1.4, calcium 9.6, magnesium 1.6 which was replaced IV. Total bili of 0.6, AST 21, ALT 22, alk phos 97, CK of 40. Troponin is less than 0.06. Total protein 6.7. DIAGNOSTIC STUDIES: Imaging done on the was a chest x-ray, which showed mild chronic left basilar atelectasis or scarring. CT done on 03/29/2019 showed no acute intracranial abnormalities, age-related findings including moderate cerebral and cerebellar volume loss, atherosclerosis, moderate chronic [facility] [address] [place] [address] HISTORY AND PHYSICAL Name: FE GOOD Room #: 518B-B ADM IN M.R.#: [id number] Admission: 03/30/19 ������������������ Attend Phys: Juanito Guardado, DO Discharge: ������������������ Date of : 31 Report #: [id number] white matter. MUSCULOSKELETAL EXAM: The patient is ambulatory, wearing hospital gown. MENTAL STATUS EXAMINATION: This is a well-developed, disheveled male, appearing at least stated age. Attention limited. Concentration limited. Speech a bit slowed. Thought process, linear and limited. Thought content, relative poverty of thought. Some psychomotor agitation. No psychomotor retardation. Denied auditory, visual, or tactile hallucinations. Denied suicidal intent or plan. Denied hopelessness or helplessness. Denied homicidal intent or plan. Memory noted to be impaired, not formally tested today. Insight limited. Judgment limited. Fund of knowledge is below average. FORMULATION: An 88-year-old male with limited information, was brought from home for behavioral disturbance and dementia where he lives with his . 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 COMORBIDITIES: Include hyperlipidemia, BPH. PLAN: Evaluate, stabilize and obtain collateral. I have a daughter listed as Gladys Good, and daughter, Johnson Mancera. I will attempt to contact them to get more information, so no med changes at present until I get that. STRENGTHS: He is insured, supportive family. WEAKNESSES: Advancing age, probable dementia. ��������������������������������������������� <ELECTRONICALLY SIGNED> ���������������������������������������� By: Juanito Guardado DO ��������������������������������������������� 04/03/19 [id number] Juanito Guardado, /nt
[2019-04-03 10:41] VITALS: BP 122/64
[2019-04-03 12:00] VITALS: BP 122/64
--- NOTE | 2019-04-03 17:18 | NUR ---
PATIENT HAS BEEN CALM AND AGREEABLE. OUT ON UNIT - APPETITE GOOD. HAD TWO BOWEL MOVEMENTS IN COLONSTOMY BAG - SOFT STOOL. ALERT TO SELF - BUT RESPONSIVE TO QUESTIONS. ASSESSED LEFT ARM FRACTURE FOR PAIN DISCOMFORT - PATIENT STATED DULL PAIN BUT MORE WHEN HE MOVES LIMB UNEXPECTEDLY. PATIENT DENIED ANY S/I - MATCH-E-BE-NASH-SHE-WISH BAND - CHARGED HEARING AIDS AND INSERTED FOR PATIENT. SHORTLY LATER FOUND HIM WALKING AROUND WITH THEM IN HAND. CHOSE TO PLACE BACK IN HIS CHARGING BOX TO PREVENT LOSS. NO AGGRESSION OR ARGUMENTATIVE BEHAVIOR - HAS BEEN REDIRECTABLE. SOMETIMES IRRITABLE BUT EASILY RE-ASSURED WITH PATIENCE AND EXPLANATION OF WHAT ATTEMPTING TO DO. MEDICATION COMPLIANT ALL DAY.
[2019-04-03 19:55] VITALS: BP 165/80
--- NOTE | 2019-04-04 00:36 | NUR ---
Care assumed of patient at 1900: Patient sitting in day room upon start of shift. Patient alert and oriented to person only. Patient is worried about where his wallet is, how he got here, where he is, where his is. Patient re-orientated several times this shift. Patient confused and forgetful. Patient restless this evening. Patient disoriented on time of day. Patient states that he has slept for the last 3 days and doesn't want to sleep any longer. Patient took medications whole without difficulty. Colostomy care completed. Continent of bladder. Denies pain or discomfort. Patient has been easily agitated and irritable. Patient does not like when staff attempts to re-direct or re-orientate him.
[2019-04-04 07:30] VITALS: BP 140/64
[2019-04-04 10:48] VITALS: BP 140/64
--- NOTE | 2019-04-04 11:42 | NUR ---
Assumed pt care this am, hard cast with a sling mainainted on his left arm. Ptdid not want hearing aids and was able to hear when spoke to at a close distance. Pt did not want pain medication when offered since he mentioned he still has that constant pain on his left shoulder and did mention pain was at a minimum and would get worse with movement. No delusion or hallucinations have been noted as of this time. Demeanor has been calm and cooperative, would fall asleep on a chair while in the TV room. POC being folowed.
[2019-04-04 19:30] VITALS: BP 157/70
--- NOTE | 2019-04-05 03:51 | NUR ---
Care assumed of patient 1899: Patient sitting in day room at start of shift. Patient confused and forgetful. Staff attempted to re-direct and re-orientate patient several times. Patient becomes argumentative and irritable when re-directed. Patient alert and oriented to person only. Patient kept removing sling to left arm. Patient put it on his foot and attempted to wear it as a boot at one point. Patient continent of bladder this shift. Colostomy care provided. No delusional behaviors or paranoia observed. Patient not observed interacting with peers. Patient initially declined to take HS medications. Education provided for several minutes. Patient then looked at nurse and stated, "if I take the pills, will you shut up and leave me alone?" Patient then took medications and went to bed with no difficulty.
[2019-04-05 07:00] VITALS: BP 161/65
[2019-04-05 12:43] VITALS: BP 161/65
--- NOTE | 2019-04-05 12:50 | NUR ---
ASSUMED CARE AT 0700 THIS MORNING. PT. UP ON UNIT, DRESSED, FOR MEALS, GROUPS. HAS BEEN COOPERATIVE WITH TAKING MEDICATIONS. LLL DEMINISHED. PT. [place]. HE IS A&O X 1 ( TO SELF ONLY). CONTINUES TO HAVE ARM IN SLING AND C/O PAIN TO ARM (LEFT ARM). HE WAS GIVEN TYLENOL FOR THE ARM PAIN. HE STATED HIS ARM STILL HURT, BUT NOT MUCH IT DID BEFORE AFTER HE WAS GIVEN THE TYLENOL. HE WENT TO HIS ROOM TO REST AFTER LUNCH.
[2019-04-05 19:57] VITALS: BP 175/60
--- NOTE | 2019-04-05 23:41 | NUR ---
Care assumed of patient at 1900: Patient resting in bed at beginning of shift. Patient pleasant and cooperative. Alert and oriented to person only. Denies pain or discomfort. Patient took medications whole without difficulty. Patient has been having VH of men working toward the top of his ceiling in his room. Patient reports that he feels bad that he can't help them with the wires but his hands just don't work as well as they used too. Patient then asked nurse to get the tall ladder that is outside leaning against the house for them. Patient denies any fear. He appears to be resting in bed, looking toward the ceiling at this time. Patient stated "I'm just watching them". Colostomy care provided. Assisted with toileting.
[2019-04-06 08:10] VITALS: BP 149/74
--- NOTE | 2019-04-06 15:10 | NUR ---
PATIENT WAS UP AND OUT TO THE DAY ROOM WHEN CARE ASSUMED, AMBULATES WITH SLOW UNSTEADY GAIT. PATIENT TOOK ALL MEDICATIION WHOLE WITHOUT DIFFICULTY. HE IS EATING MEALS AND DRINKING FLUID WELL. PATIENT IS FORGETFUL, CONFUSED, AND DELUSIONAL. "THEY SAY MY MOTHER IS COMING, I AM LOOKING FOR MY MOTHER". PATIENT REDIRECTS FOR SHORT WHILE AND GOES BACK TO DELUSIONAL STATE. NO SUICIDAL OR HOMOCIDAL STATEMENT MADE, NO AGGRESSION OR AGITATION NOTED AT THIS TIME. COLOSTMY CARE PROVIDED, PATIENT ASSISTED TO TOILET NEEDED. PATIENT UNABLE TO RESPOND APPROPRIATELY TO ASSESSMENT QUESTIONS DUE TO COGNITIVE IMPAIRMENT. CAST/SLING IN PLACE TO LEFT ARM, HE DENIES PAIN, WILL CONTINUE TO REDIRECT, AND MONITOR FOR SAFETY.
--- NOTE | 2019-04-06 17:18 | NUR ---
LAILA sent a referral to Zelda at [facility]. Zelda, mention that she will send an corporate traffic manager to see her tomorrow, April 07, 2019.
[2019-04-06 20:58] VITALS: BP 117/79
--- NOTE | 2019-04-07 04:18 | NUR ---
Assumed pt care at 1900. Pt A/OX2,confused and impulsive,talking about going home and looking for his stuff that has been locked up since he came here. Easily agitated when redirecting him,took HS meds after 3 prompts and agreeable to going to bed. Denies SI/HI or feeling depressed stating "I just want to go home to my ". Left arm with a cast/sling, needs reminders to put the sling back when walking around. Has been up since 0230 sitting in the day room. Colostomy intact with liquid stool emptied,incont of bladder. Will continue to monitor pt.
[2019-04-07 08:00] VITALS: BP 137/64
--- NOTE | 2019-04-07 11:46 | NUR ---
Nutrition: pt seen per followup. Admit to [facility] unit for confusion, dementia with aggressive behaviors. No weight since admission, stable in the 140s. Intake is good, 75-100% of meals. Continues on supplements ferrous sulfate, vit D, MVI. Low nutrition risk.
--- NOTE | 2019-04-07 15:39 | NUR ---
PATIENT HAS BEEN UP AND OUT IN DAY ROOM MOST OF THE SHIFT FALLING ASLEEP INTERMITTENTLY. PATIENT TOOK ALL HIS MEDICATION WHOLE WITHOUT DIFFICULTY. PATIENT IS EATING MEALS AND DRINKING FLUID WELL. PATIENT AMBULATE INDEPENDENTLY WITH HIGHLY UNSTEADY GAIT. REQUIRES CLOSE OBSERVATION WHILE AMBULATING, AND CONSTANT REDIRECTION. PATIENT DENIES SUICIDAL AND HOMOCIDAL IDEATION, UNABLE TO RESPOND APPROPRIATELY TO FURTHER ASSESSMENT QUESTIONS DUE TO COGNITIVE IMPAIREMENT. CAST/SLING IN PLACE. COLOSTORY INTACT, CARE PROVIDED X 2. PATIENT OBSERVED RESPONDING TO INTERNAL STIMULI, AND VISUAL HALLUCINATION, PICKING AT EMPTY FLOOR. WHEN ASKED WHAT HE WAS ATTEMPTING TO PICK-UP, PATIENT STATES "I SEE WHAT I SEE, PIECES OF TRASH AND SHOVEL". PATIENT REDIRECTED THAT FLOOR IS CLEAN, NO TRASH OR SHOVEL PRESENT ON THE FLOOR. WILL CONTINUE TO REDIRECT AND MONITOR FOR SAFETY.
[2019-04-07 19:30] VITALS: BP 142/66
--- NOTE | 2019-04-07 20:40 | NUR ---
ASSUMED CARE OF THE PT AT 191 PM. THE PT WAS WALKING IN THE HALLWAY. THIS [employer]NAL MEMBER ASSISTED HIM TO THE DAYROOM, HE HAS A SLING ON FOR HIS CAST, WHICH IS COVERED BY AN ADI WRAP. HE IS ABLE TO MOVE HIS FINGERS ON THAT ARM. TOOK HIS HS MEDICATIONS WITHOUT ANY DIFFICULTY. DENIES ANXIETY, DEPRESSION, SI/HI, A/V HALLUNICATIONS. WALKS WITH A STEADY GAIT. REMAINS ON 12 MINUTE CHECKS FOR HIS SAFETY.
--- NOTE | 2019-04-08 01:55 | NUR ---
THE PT IS HAVING TROUBLE SLEEPING THIS NOC SHIFT, HE KEEPS TALKING TO HIS ROOMMATE AND TO HIMSELF. HIS COLOSTOMY BAG WAS EMPTIED EARLIER IN THE SHIFT. REMAINS ON 12 MINUTE CHECKS FOR HIS SAFETY.
--- NOTE | 2019-04-08 05:53 | NUR ---
THE PT SLEPT 6 HOURS LAST NIGHT.
[2019-04-08 07:52] VITALS: BP 143/69
--- NOTE | 2019-04-08 11:21 | NUR ---
ASSUMED PATIENT CARE AT 0700. PATIENT UP SHORTLY AFTER, AMBULATED SELF TO D.R. ATE PARTIAL BREAKAFST. FLAT AFFECT, COOPERATIVE MOOD, COMPLIANT WITH MEDICATIONS. PATIENT HAS DISCHARGE PLANS FOR THIS DATE. GIVEN SHOWER BY AISLINN AND ANOTHER NURSE, Erlin SWIFT
--- NOTE | 2019-04-08 16:02 | NUR ---
LAILA spoke with sanam from [facility] concerning pt been d/c. sanam mention that will need a couple of more days to be assessed to see if he appropriate for the [facility]. LAILA collaborate with Dr. Guardado, and pt will be here over the weekend for care. LAILA will follow-up with [facility] upon d/c.
[2019-04-08 16:20] VITALS: BP 143/69
[2019-04-08 19:32] VITALS: BP 164/75
--- NOTE | 2019-04-08 20:00 | NUR ---
ASSUMED CARE @ 1900, SITTING ON COUCH IN DAY ROOM WATCHING TV. WILL CONTINUE TO MONITOR Q 12 FOR PATIENT SAFETY.
[2019-04-09 02:16] VITALS: BP 164/75
--- NOTE | 2019-04-09 02:48 | NUR ---
2350 TRAZADONE 25 MG PO PROVIDED FOR INSOMNIA, OLANZAPINE 2.5 MG PO PROVIDED FOR AGITATION. HAVING VISUAL HALLUCINATIONS, SAYING CANT YOU SEE IT, ITS CLEAR, ITS UNDER YOUR FEET AND ON THE WALL. WANTING TO DO ELECTRICAL WORK. ASSISTED TO BED X1 ASSIST TO AMBULATE D/T UNSTEADY GAIT. LAID IN BED, SLEEPING UNTIL 0230, WHEN HE AWOKE AND WAS ASSISTED X1 TO THE DAY ROOM, SO HE WOULD NOT WAKE UP HIS ROOM MATE. WILL CONTINUE TO MONITOR Q 12 MINUTES FOR SAFETY.
--- NOTE | 2019-04-09 05:57 | NUR ---
SLEPT 5 HOURS OVERNIGHT. OSTOMY BAG EMPTIED, BROWN SOFT STOOL EMPTIED. CONFUSION AND [place] NOTED.
[2019-04-09 08:42] VITALS: BP 156/70
--- NOTE | 2019-04-09 09:07 | NUR ---
PATIENT PLEASANT AND AGREEABLE. NO BIZARRE STATEMENTS. DENIES S/I - H/I OR ANY AUDITORY OR VISUAL HALLUCINATIONS WHEN QUESTIONED. PATIENT ATE MODERATE AMOUNT OF BREAKFAST WITH ASSISTANCE. SLOW TO TAKE MEDICATIONS - ADMINISTERED IN APPLESAUCE. UNSTEADY WHEN TRYING TO TAKE ALONE. PATIENT HAS NO PAIN DISCOMFORT IN LEFT ARM CURRENTLY WHEN ASKED. PATIENT MAKES NEEDS KNOWN. ATTENDED AM GROUP NOT MUCH PARTICIPATION. SAT WITH HEAD DOWN DOZING OFF AN ON. RESPONDED TO WHEN STAFF ADDRESSED. SLOW TO RESPOND - APPEARED VERY TIRED.
[2019-04-09 10:01] VITALS: BP 156/70
[2019-04-09 19:30] VITALS: BP 149/64
--- NOTE | 2019-04-10 03:37 | NUR ---
ASSUMED CARE @ 1900, IN W/C IN THE DAY ROOM, COVERED IN A BLANKET, L ARM IN A SLING. TOOK 2100 MEDS WHOLE WITH WATER. A&O X 2. ORIENTED ONLY TO SELF AND . COULD NOT REPORT CURRENT DATE, PRESIDENT OR HIS PURPOSE FOR BEING HOSPITALIZED. HRRR, LUNGS CTA, ABD NORMOACTIVE UPPER QUADRANTS, HYPOACTIVE BOWEL SOUNDS LOWER QUADRANTS. GIVEN PRN TRAZADONE 25 @ 2100 FOR INSOMNIA. PT STAYED UP TILL QUITE LATE, ALTERNATELY AMBULATING AND THEN SITTING ON THE COUCH IN THE DAY ROOM. COLOSTOMY BAG EMPTIED WHEN TOILETING PATIENT. WILL CONTINUE TO MONITOR Q 12 HOURS FOR PATIENT SAFETY.
[2019-04-10 03:49] VITALS: BP 149/64
--- NOTE | 2019-04-10 07:30 | NUR ---
SLEPT 6 HOURS OVERNIGHT.
[2019-04-10 08:11] VITALS: BP 122/66
--- NOTE | 2019-04-10 14:13 | NUR ---
Date of Admission: 03/30/19 Date of Activity Therapy Assessment:04/02/2019 Activity Goal:1 group per day Initial Goal:Patient will participate in one recreational therapy group per day to increase self esteem and social engagement. Weekly progress towards goal:Did not achieve Group participation level: Minimal to none Behaviors observed:Pt sleeps during most groups, wanders often and appears disoriented during groups. Pt participation is very low. Plan: No change towards goal
--- NOTE | 2019-04-10 15:08 | NUR ---
PATIENT WAS SEATING IN THE DAY ROOM ON A WHEELCHAIR WHEN CARE ASSUMED. HE IS FORGETFUL, CONFUSED, RESPONDS TO INTERNAL STIMULI. PATIENT ATTEMPTING TO PICK-UP OBJECT FROM THE FLOOR, NO OBVIOUS OBJECT ON THE FLOOR. PATIENT IS IMPULSIVE, MULTIPLE ATTEMPT TO GET OUT OF WHEELCHAIR UNASSISTED, AND WITHOUT LOCKING THE WHEELCHAIR. PATIENT IS A VERY HIGH FALL RISK, ATTEMPTING TO AMBULATES, GAIT VERY UNSTEADY. PATIENT TOOK ALL HIS MEDICATION WHOLE WITHOUT DIFFICULTY. SITS IN GROUP THERAPY, BUT NO INSIGHT TO WHAT IS GOING ON. PATIENT IS NOT COGNITIVE ENOUGH TO RESPOND AOPROPRIATELY TO ASSESSMENT QUESTIONS. NO SUICIDAL AND HOMOCIDAL STATEMENT MADE AT THIS TIME. NO AGGRESSION OR AGITATION NOTED. WILL CONTINUE TO REDIRECT, AND MONITOR FOR SAFETY.
[2019-04-10 19:38] VITALS: BP 132/58
[2019-04-11 01:17] VITALS: BP 132/58
--- NOTE | 2019-04-11 05:04 | NUR ---
PT RESTLESS, PACING IN REED. CONFUSED TO PLACE. TOOK HS MEDS WITH NO PROBLEM AFTER EVENING SNACKS. UP SEVERAL TIMES DURING THE NIGHT, AND NEEDED TO BE ESCORTED BACK TO BED. SLEPT INTERMITTANTLY.
--- NOTE | 2019-04-11 09:08 | NUR ---
ASSUMED PATIENT CARE AT 0700. PATIENT ASSISTED UP FOR BREAKFAST TIMES ONE. HOWEVER, VERY DROWSY, ATE ONLY A FEW BITES OF MEAL. TOOK ALL A.M. MNEDICATIONS IN [place]. IS SITTING IN R.T. GROUP FOR A.M. SESSION AT THIS TIME. CONTINUE TO MONITOR.
[2019-04-11 09:18] VITALS: BP 136/56
--- NOTE | 2019-04-11 14:57 | NUR ---
LAILA sent weekend updates to [facility] [phone]
--- NOTE | 2019-04-11 16:58 | NUR ---
PATIENT EXPERIENCED A FALL AT 1600. NURSE WAS WITH PATIENT A ONE-HALF TO ONE MINUTE PRIOR TO PATIENT FALLING. UNKNOWN WHAT CAUSED PATIENT TO FALL. PATIENT WAS OBSERVED LYING ON HIS BACK, AFTER NURSING STAFF HEARD A "BANG" ON THE FLOOR FROM . ASSESSED FOR INJURIES, NON OBSERVED. PATIENT STATED THAT HE HIT HIS ELBOW WHEN LANDING ON THE FLOOR. HAS A CAST ON LEFT ARM FROM PRE-ADMISSION FALL. DR. WESLEY LIAO ASSESSED PAITENT, ORDERS TO MONITOR PATIENT'S LEFT HAND FOR SWELLING AND/OR BRUSING, NOTIFY HER OR ON-CALL HOSPITALIST IF NECESSARY. PATIENT'S CONTACTED BY THIS NURSE; DEBURR OPERATOR ALSO NOTIFIED.
--- NOTE | 2019-04-11 18:23 | NUR ---
NURSE CONTACTED SPOUSE'S R/T REQUEST BY DR. WESLEY LIAO VIA TELEPHONE TO OBTAIN FURTHER INFORMAITON R/T PATIENT'S CAST. RE: WHEN PATIENT DUE FOR ORTHO F/U FOR RE-ASSESSMENT. MRS. GOOD STATED THAT PATIENT WAS SCHEDULED TO SEE THE ORTHO DOCTOR, DR. ROSARIO, THE NEXT DAY AFTER HIS ADMISSION TO [facility] TO [facility]. NURSE RELAYED INFORMAITON THAT NEXT TREATMENT TEAM MEETING IS TOMORROW, April. PATIENT'S CASE WILL BE DISCUSSED THEN, AND SPOUSE WILL BE CONTACTED BY APPROPRIATE STAFF. SPOUSE THEN STATED THAT SHE NOW DOES NOT WISH TO CONSIDER [facility] PREVIOUSLY INDICATE. ADDED THAT THERE WAS RECENT NEWS COVERAGE FROM FAMILY MEMBERS OF PATIENTS THERE ABOUT DEFICIENT CARE. STATED THAT SHE WOULD NOT TAKE A "SICK ANIMAL THERE." STILL PREFERS [facility] FOR PATIENT'S POST-DISCHARGE CARE.
[2019-04-11 20:21] VITALS: BP 136/85
--- NOTE | 2019-04-11 22:17 | NUR ---
ASSUMED CARE @ 1900. UP IN W/C IN DAY ROOM. LEFT ARM NOTED TO BE IN ADI WRAP, BUT NO SLING. PT HAD TAKEN ONE OF HIS SOCKS OFF, HE ALLOWED HIS SOCK TO BE PUT BACK ON HIS FOOT. NO SWELLING NOTED IN LEFT HAND. PT ALERT, BUT CONFUSED. ORIENTED TO HIS OWN NAME, OTHER ASSESSMENT NOT POSSIBLE D/T CONFUSION AND [place]. TOOK HS MEDS WHOLE IN PUDDING AND ICE CREAM. WILL CONTINUE TO MONITOR Q 12 FOR PATIENT SAFETY.
[2019-04-12 03:00] VITALS: BP 136/85
[2019-04-12 03:18] VITALS: BP 136/85
--- NOTE | 2019-04-12 06:25 | NUR ---
SLEPT 6.6 HOURS OVERNIGHT.
[2019-04-12 08:20] VITALS: BP 132/72
[2019-04-12 13:41] VITALS: BP 132/72
--- NOTE | 2019-04-12 13:49 | NUR ---
ASSUMED CARE AT 0700 TODAY. PT. UP IN W/C FOR MEALS. TOOK MEDICATIONS WITHOUT PROBLEMS. UNABLE TO DISCUSS HIS MENTAL STATUS WITH THIS RN. HE DID NOT VERBALIZE A GOAL TODAY FOR HOW HE IS FEELING. WAS NOT ABLE TO STATE IF HE HAS SI/HI FOR AVH. IS NOT TALKING TO ANYONE.
--- NOTE | 2019-04-12 20:16 | NUR ---
ASSUMED CARE @ 1900, IN ROOM, SITTING IN W/C. ADJUSTED TO A MORE COMFORTABLE SEATING POSITION AND ROLLED TO THE DAY ROOM FOR SNACKS. WILL CONTINUE TO MONITOR Q 12 FOR PATIENT SAFETY.
--- NOTE | 2019-04-12 22:41 | NUR ---
HS MEDS GIVEN CRUSHED IN APPLESAUCE. TOILETED AND COLOSTOMY BAG EMPTIED. CHANGED TO [facility] GOWN AND RETIRED TO BED FOR THE NOC. WILL CONTINUE TO MONITOR Q 12 MINUTES FOR PATIENT SAFETY. 3 BED RAILS IN FORCE, BED IN LOW POSITION AND BED ALARM ON.
--- NOTE | 2019-04-13 00:41 | NUR ---
CLIMBING OUT OF BED, ANXIOUS AND DENIES TOILET NEEDS, DENIES ANY NEEDS. TRAZADONE 25 AND ZYPREXA 2.5 GIVEN @ 2300. TOILETED AND RETURNED TO BED. AGAIN GOT OUT OF BED @ 0000, SAT UP IN W/C AND PROPELLED TO THE DAY ROOM, GIVEN A SNACK AND ALLOWED TO SIT UP. WILL CONTINUE TO MONITOR Q 12 MINUTES FOR SAFETY.
--- NOTE | 2019-04-13 03:42 | NUR ---
AWAKE, PROPELLING SELF IN W/C IN THE DAY ROOM AND THROUGHOUT THE REED. HAVING VISUAL HALLUCINATIONS, SEEING HIS TOOLBOX UNDER THE TABLE, SEEING PLASTIC ON THE FLOOR. REPORTS HE IS WORRIED ABOUT HIS TOOLS NOT BEING PUT AWAY. TYLENOL 500 MG GIVEN FOR 6/10 PAIN IN L UPPER EXTREMITY. OLANZAPINE 2.5MG GIVEN FOR AGITATION AND ANXIETY @ 03:35. WILL CONTINUE TO MONITOR Q 12 FOR PATIENT SAFETY.
[2019-04-13 03:47] VITALS: BP 140/63
[2019-04-13 05:46] VITALS: BP 140/63
--- NOTE | 2019-04-13 05:53 | NUR ---
WAS UP IN W/C IN THE DAY ROOM MOST OF THE NIGHT. HAVING VISUAL HALLUCINATIONS THAT HE COULD SEE HIS TOOLS IN A TOOL BOX AND WAS WORRIED ABOUT TOOLS NOT BEING PUT AWAY. ALSO SAW THINGS ON THE FLOOR THAT HE WANTED TO CHILD LIFE THERAPIST, COULD NOT VERBALIZE WHAT HE SAW, BUT REACHED TO THE FLOOR A GREAT DEAL. SLEPT 2.2 HOURS, FINALLY LAYING DOWN @ 05:10.
[2019-04-13 08:40] VITALS: BP 177/44
[2019-04-13 19:54] VITALS: BP 124/55
--- NOTE | 2019-04-13 20:57 | NUR ---
Pt in w/c propeling self in halls. Pt speech clear but nonsensical. Pt did discuss how he was monitoring a peer and that his friends had car trouble so he wanted his to come and pick him up. Pt discussed how he wants to call his for a ride. Pt able to be redirected in conversation that transporation was arranged for the am. Pt stated he has a locker here with his name on it, and propeled himself to his room. Pt assisted to bed, bed alarm on. Colostomy bag changed. Pt was compliant with his medications and hs snack. Good eye contact and appropriate facial expressions during conversations this tessie.
--- NOTE | 2019-04-14 05:59 | NUR ---
COLOSTOMY STOOL LIQUID HELD SENNINA THIS AM.
[2019-04-14 08:00] VITALS: BP 149/66
[2019-04-14 09:18] VITALS: BP 149/66
--- NOTE | 2019-04-14 10:12 | NUR ---
ASSUMED PT CARE REPORT RECEIVED. PT IS AOX4 HARD OF HEARING. ON RA, VSS. HEARING AID IN PLACE. PT RECEIVED HIS MEDICINE TODAY, TOLORATED WELL WITHOUT COMPLAINT.PT PT PARTICIPATEED TO HALF SESSION OF GROUP. NO COMPLAINT. WILL CONTINUE TO [facility]
--- NOTE | 2019-04-14 10:34 | NUR ---
Nutrition: pt seen per followup. Unable to awaken during visit but intake records show continued good intake of 75-100% of most meals on heart healthy diet. Stable weights in the 140s. Low nutrition risk.
--- NOTE | 2019-04-14 12:53 | NUR ---
COLOSTOMY EMPTIED. AMOUNT OF 200 CC STOOL. STOOL IS LIGHT BROWN.
[2019-04-14 19:07] VITALS: BP 118/59
--- NOTE | 2019-04-15 01:59 | NUR ---
ASSUMED CARE @ 1900, RECEIVED REPORT FROM DAY NURSES. UP IN W/C IN THE DAY ROOM, HEARING AIDES IN EARS. A&OX2 CONFUSION NOTED. ORIENTED TO SELF AND ONLY. TOOK HS MEDS CRUSHED IN APPLESAUCE. RETIRED @ 220. WILL CONTINUE TO MONITOR Q 12 MINUTES FOR PATIENT SAFETY.
--- NOTE | 2019-04-15 06:20 | NUR ---
SLEPT 8.4 HOURS
[2019-04-15 08:00] VITALS: BP 189/70
--- NOTE | 2019-04-15 09:25 | NUR ---
LAILA sent a referral to Es[facility], [facility], and [facility]. LAILA will follow-up with the [facility] to see if pt can be evaluated for admission.
[2019-04-15 13:30] LABS: ABSOLUTE NEUTROPHILS 4.2 thou/uL (1.4-8.2); BASOPHILS 0.5 % (0.0-2.0); EOSINOPHILS 2.4 % (0.0-3.0); HEMOGLOBIN 12.7 gm/dL (14.0-18.0); LYMPHOCYTES 21.8 % (24.0-44.0); MCH 31.3 pg (26.0-34.0); MCHC 34.4 g/dL (28.0-37.0); MONOCYTES 10.8 % (1.0-8.0); PLATELET COUNT 185 thou/uL (150-400); POLYS 64.5 % (36.0-66.0); RBC 4.07 mil/uL (4.50-6.00); RDW 13.4 % (10.5-14.5); WBC 6.5 thou/uL (4.0-11.0)
[2019-04-15 13:37] LABS: CALCIUM 10.1 mg/dL (8.5-10.1); CREATININE 0.9 mg/dL (0.7-1.3); POTASSIUM 4.2 mmol/L (3.5-5.1)
--- NOTE | 2019-04-15 14:09 | NUR ---
1225 Dr. dumont gave a new order; the order was received read back and verified 1) labs stat CBC and BMP.
[2019-04-15 15:33] VITALS: BP 189/70
--- NOTE | 2019-04-15 15:58 | NUR ---
PATIENT HAS BEEN UP ON UNIT MOST OF THE DAY. QUIET AND RATHER DROWSY - DOZING OFF FREQUENTLY. AFFECT PLEASANT AND MOOD AGREEABLE. NEEDS ENCOURAGEMENT WITH MEALS AND HELP AT TIMES. COLONSTOMY BAG CHANGED OUT AFTER SHOWER EARLIER THIS AFTERNOON. HAD SEVERAL LOOSE STOOL MOVEMENTS. PATIENT HAD VISIT - WENT WELL BUT PATIENT FELL ASLEEP - NEEDED TO BE AROUSED. MEDICATION COMPLIANT. COMPLAINED OF SOME PAIN DISCOMFORT IN LEFT ARM WHERE CAST REMOVED. STATED REPOSITIONING HELPED WIHT ACHE. DENIED ANY S/I WHEN QUESTIONED.
[2019-04-15 19:25] VITALS: BP 145/55
--- NOTE | 2019-04-15 21:36 | NUR ---
Pt asleep in w/c in day room upon arrival to shift. Pt awakened after compliance with hs meds and snack and propelled self in w/c in padilla. Lap belt on pt, pt asked about removal of belt and then proceeded to remove belt. Pt compliant with hs adl care, hearing aides on scrap charger. Ostomy intact.
--- NOTE | 2019-04-15 22:00 | NUR ---
PT AWAKENED WHEN FIRE WORKS STARTED, HE WAS LOOKING FOR HIS DAUGHTER. PT REDIRECTED TO BED AND ACCEPTED EXPLAINATION THAT HIS DAUGHTER WAS AT HOME.
[2019-04-16 03:21] VITALS: BP 159/72
--- NOTE | 2019-04-16 03:27 | NUR ---
HOSPITALIST Juani GODWIN NOTIFIED OF FALL. PT HAS NO COMPLAINTS OF INJURIES. VS WNL. DPOA LEFT VOICE MAIL RE FALL. BED ALARM SOUNDED. STAFF ENTERED ROOM AND PT WAS ON FLOOR SITTING BY THE RIGHT SIDE OF THE BED WITH HIS BOTTOM LEGS STRAIGHT OUT. ROLLER STITCHER ON UNIT AT TIME OF FALL.
[2019-04-16 04:21] VITALS: BP 157/75
--- NOTE | 2019-04-16 05:48 | NUR ---
THIS AM PT GRIMACING AND POINTING TO L HIP AREA. PRN TYLENOL PROVIDED. TATO CASTAÑEDA CONTACTED AND ORDER FOR L HIP XRAY GIVEN.
[2019-04-16 08:23] VITALS: BP 151/73
--- NOTE | 2019-04-16 15:03 | NUR ---
HAS CONTINUED TO C/O LEFT HIP DISCOMFORT STATING "THE SAYS I BUSTED IT OPEN LAST NIGHT" TYLEOL 500MG GIVRN PO PRN WITH FAIR RELIEF,NO A VALID HISTORIAN HE GIVES VARIOOUS A ND ERRATIC PAIN RATINGS. CHRISTOPHER FINCH TO PERSON ONLY-DENIES SI/SH/HI LEFT HIP XRAY COMPLETED NO FX SEEN. SLIGHTLY LESS RESTLESS THIS PM
[2019-04-16 19:15] VITALS: BP 153/76
[2019-04-16 22:45] VITALS: BP 136/90; BP 153/76
[2019-04-17 10:45] VITALS: BP 136/90
--- NOTE | 2019-04-17 11:06 | NUR ---
ASSUMED CARE AT 0700 THIS MORNING. PT. IN BED. STAFF HELPED PT. UP TO W/C AND HE CAME INTO THE DINING ROOM FOR BREAKFAST. SEEMED UNABLE TO FEED SELF AT BREAKFAST. HE KEPT STICKING HIS HANDS IN THE OATMEAL, ALMOST UPSETTING TRAY. THIS RN ASSISTED HIM WITH HIS MEAL. HE WAS MED COMPLIANT, HOWEVER, MEDICATIONS WERE CRUSHED AND PUT IN HIS FOOD HE ATE. HE SITS IN HIS W/C DOZING OFF AT TIMES. HE DID ATTEMPT TO PARTICIPATE IN GROUP THIS MORNING. NO S/S SI/HI OR AVH NOTED.
[2019-04-17 19:30] VITALS: BP 145/71
--- NOTE | 2019-04-17 23:32 | NUR ---
Care assumed of patient at 1900: Patient sitting in w/c in day room with other peers and staff. Patient enjoying watching baseball game. Patient was also putting together puzzle blocks with other peers. Patient quiet, calm, cooperative. Patient is having disorganized thoughts and difficulty finishing sentences. Patient is slow with speech at times. Patient declining to wear hearing aides at this time. Took medications crushed without difficulty. Patient unsteady on feet with poor balance. Max assist x1 for transfers and completion of ADLs. Patient ate 100% snack with supervision. Alert and oriented to person only. Denies pain or discomfort but reports left arm is "sore". Denies wanting any pain medication at this time.
[2019-04-18 07:45] VITALS: BP 159/70
[2019-04-18 11:17] VITALS: BP 159/70
[2019-04-18 19:25] VITALS: BP 130/84
[2019-04-18 19:26] VITALS: BP 154/68
--- NOTE | 2019-04-19 00:23 | NUR ---
Care assumed of patient at 1900: Patient sitting in w/c in the day room with other peers and staff at start of shift. Patient pleasantly confused. Calm, cooperative. Patient would get restless at times and propel w/c about the unit. Patient ate 100% snack with peers. Patient appeared to enjoy sitting at the table with other peers and watch baseball. Patient took medications crushed without difficulty. When asked if patient had any concerns, he stated that he was worried about finding the classroom that we needed to go to. Patient re-orientated that he was at the hospital. He then smiled and said, "oh, I knew that". Patient was able to go to bed without difficulty this shift and is resting quietly.
[2019-04-19 08:31] VITALS: BP 167/71
[2019-04-19 12:29] VITALS: BP 167/71
--- NOTE | 2019-04-19 12:37 | NUR ---
ASSUMED CARE AT 0700 THIS MORNING. PT. IN BED BUT GOTTEN UP BY USED EQUIPMENT SALES REPRESENTATIVE. PT. ABLE TO FEED HIMSELF THIS MORNING AND IS MORE AWAKE THIS MORNING THAN IN SOME PREVIOUS MORNINGS. HE IS ON THE UNIT FOR MEALS, GROUPS. HIS MEDS ARE CRUSHED AND PUT IN APPLE SAUCE OR PUDDING. HE DENIES SI/HI. ABBY NOT NOTED ANY S/S AVH THIS MORNING.
--- NOTE | 2019-04-19 15:57 | NUR ---
LAILA send a referral to [facility], and [facility] of [facility]. LAILA will follow-up with the admission coordinator concerning his acceptance.
[2019-04-19 19:42] VITALS: BP 148/74
--- NOTE | 2019-04-19 22:22 | NUR ---
ASSUMED CARE OF THE PT AT 1930. THE PT WAS SLEEPING WHEN THIS FOOT AND ANKLE SURGEON CAME ON DUTY. WOKE THE PT UP TO GIVE HIM HIS MEDICATIONS WHICH WERE CRUSHED IN APPLESAUCE. ASSISTED THE PT TO THE BATHROOM, WHERE HE VOIDED, EMPTIED HIS COLOSTOMY BAG. WALKS WITH A STEADY GAIT WITH THE ASSISTANCE OF ONE. HEART RATE REGULAR. LUNGS CLEAR BILATERALLY, RESP., EVEN, AND UNLABORED. +BS HEARD IN ALL 4 QUADRANTS. REMAINS ON 12 MINUTE CHECKS FOR HIS SAFETY.
--- NOTE | 2019-04-20 06:27 | NUR ---
THE PT SLEPT 12 HOURS LAST NIGHT.
--- NOTE | 2019-04-20 09:06 | NUR ---
0715: Report rec from noc shift, care assumed. 0900: Assist with transfer x1 to w/c, oriented to name and occasional place, forgetful. Feeds self with set-up assist, appetite good, consumed 100% of a.m. meal, takes meds whole w/o difficulty. Attends 0900 group, minimal participation, observed pt sitting in w/c with eyes closed, arouses readily to verbal and tactile stimuli. Cooperative with staff and pleasant with others at group.
[2019-04-20 09:17] VITALS: BP 147/66
[2019-04-20 09:32] VITALS: BP 147/66
--- NOTE | 2019-04-20 10:06 | NUR ---
LAILA spoke with [facility], and [facility] concerning the referral that was sent on last week. Both facilities denied pt due to them not equipped to handle his behaviors.
--- NOTE | 2019-04-20 10:08 | NUR ---
LAILA spoke with pt Heber concerning a referral been sent to [facility], and [facility]. Heber stated that her will not been going to [facility].
--- NOTE | 2019-04-20 11:22 | NUR ---
Nutrition: pt seen per followup. Remains confused, unable to interview. Eats 50-100% of most meals. Stable weights in the 140s. Continues on MVI, folic acid, Vitamin D and ferrous sulfate supplementation. Consider low risk.
--- NOTE | 2019-04-20 11:25 | NUR ---
Pt was accepted to [facility]. Pt will d/c on April 21, 2019 at 11:00am.
[2019-04-20 19:19] VITALS: BP 139/62
--- NOTE | 2019-04-20 23:17 | NUR ---
Care assumed of patient at 1900: Patient alert and oriented to person. Patient seated in w/c with lap charmaine in place. Patient self propelling w/c about the day room. Patient ate 100% snack. Patient having disorganized thoughts. Pleasant and cooperative. Trouble focusing at times to answer questions. Needs time to process thoughts. Denies SI/HI/AH/VH. Occasional smile and joking observed. Interacting well with staff and peers. No delusional or paranoia behaviors observed. Took medications crushed without difficulty. Colostomy care provided. Assisted to bed with staff x1. Was able to fall asleep without difficulty and is resting quietly at this time.
--- NOTE | 2019-04-21 07:44 | NUR ---
0700: Report rec from noc shift, care assumed. 0745: Assisted to w/c from bed with staff assist x1, cooperative with staff, denies pain or discomfort at this time.
[2019-04-21 07:48] VITALS: BP 157/78
[2019-04-21] MEDS ORDERED: IRON325 PO (09:27)
[2019-04-21] MEDS ORDERED: LIPITOR 20 MG T20 M1 PO (09:28)
[2019-04-21] MEDS ORDERED: ASA5UEC PO (09:29)
[2019-04-21] MEDS ORDERED: SORINE 80 MG TA80 M1 PO (09:29)
[2019-04-21] MEDS ORDERED: TYLENOL EXTRA500 MG PO (09:30)
[2019-04-21] MEDS ORDERED: REMERON 30 MG T30 M1 PO (09:30)
[2019-04-21] MEDS ORDERED: ZYPREXA 5 MG TAB5 M1 PO (09:31)
[2019-04-21] MEDS ORDERED: SENNA-TIME S T1 EACH PO (09:32)
[2019-04-21] MEDS ORDERED: VITAMIN D2000 UNIT PO (09:32)
[2019-04-21] MEDS ORDERED: FINASTERIDE5 MG PO (09:33)
--- NOTE | 2019-04-21 11:10 | NUR ---
Patient Name: FE GOOD Admission Date: 03/30/19 DISCHARGE PLAN: Pt will be d/c to [facility]. Care Assessment: Pt was assessed by Dr. Guardado, and diagnosed with Major Neurocognitive Disorder. Level II Assessment: None Transportation: Pt will be transported by [facility]. Special Instructions/Notes: Pt will need a memory care placement. DISCHARGE TO FACILITY: Memory Care unit Facility: [facility] Fax: Address: [address] [place] [phone] Contact Name: Zelda PCP: JULIO Psychiatrist: PRATIK Psychiatrist
--- NOTE | 2019-04-22 10:13 | D ---
[facility] [place] [address] [place] [address] DISCHARGE SUMMARY Name: FE GOOD Room #: 518B-B [facility] IN M.R.#: [id number] Admission: 03/30/19 ������������������ Attend Phys: Juanito Guardado DO Discharge: 04/21/19 ������������������ Date of : 32 Report #: [id number] THIS REPORT FOR: //name// CC: Juanito Guardado Bernard Engel DATE OF SERVICE: 04/21/2019 INPATIENT PSYCHIATRIC DISCHARGE SUMMARY: ATTENDING PHYSICIAN: Juanito Guardado D.O. MEDICAL CONSULANT AT THE TIME OF DISCHARGE: Yamilet Field M.D. WAREHOUSE FOREMAN IN THIS ADMISSION: Dr. Mohsen [place], Orthopedic surgery. 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 Comorbidities at the time of discharge are hypertension, stable; hyperlipidemia, on statin; benign prostatic hypertrophy, on Proscar; history of colon cancer, status post colonic resection with colostomy and a revision of colostomy. He is on Pepcid p.r.n. for GERD. Also he had a left arm in a splint, which was removed. The splint for a left humerus fracture. The discharge plan, he is on a regular diet and Ensure with meals. He is discharged to nursing facility at [facility] for memory care. DISCHARGE MEDICATIONS: Are as follows, Ferrous sulfate 325 mg p.o. daily, atorvastatin 20 mg p.o. at bedtime for supplementation, hyperlipidemia; sotalol 40 mg p.o. b.i.d. for AFib, aspirin 325 mg p.o. daily for cardioprotection, acetaminophen 500 mg p.o. q. 6 p.r.n. for pain, mirtazapine 30 mg p.o. at bedtime for depression, sleep; olanzapine 5 mg p.o. b.i.d. for impulse control, Senna 2 tabs p.o. 900 for bowel motility, cholecalciferol 2000 International Units p.o. daily for supplementation, finasteride 5 mg p.o. at bedtime, and multivitamin p.o. daily. LABORATORY DATA: This admission, CBC done on 04/15, H and H 12.7 and 37.2, white count 6.5, and platelet count 185. Chemistries done 04/15, sodium is 137, potassium 4.2, chloride 101, bicarbonate 23, BUN 33, creatinine 0.9, estimated GFR 80, glucose 172, and calcium 10.1. Imaging done on last admission, he had an elbow x-ray, it showed a transcondylar fracture involving the distal humerus with mild displacement and that was done before splint removal. [facility] [address] [place] [address] DISCHARGE SUMMARY Name: JOSE GOODANTONIO Gloria Room #: 518B-B [facility] IN M.R.#: [id number] Admission: 03/30/19 ������������������ Attend Phys: Juanito Guardado DO Discharge: 04/21/19 ������������������ Date of : 32 Report #: [id number] He followed around 04/16 and his left hip was x-rayed. There was no fracture found. Blood culture done on this admission, which showed no growth at 72 hours. REASON FOR PSYCHIATRIC ADMISSION: He was initially presented to [facility] on 03/29. Apparently, he was brought by his daughter. He had increasing agitation and being combative, recently he was started on Namzaric, which included Namenda and Aricept. The patient was living at home with his who is quite frail. HOSPITAL COURSE: The patient was admitted to Geriatric Psychiatry Unit. He was started on mirtazapine as well as olanzapine, which was titrated to 5 mg twice per day. He tolerated this well. Approximately a week prior to his present discharge, probably more like 10 days, attempt was made at placement to [facility], which declined him because they did not think his behaviors were stable enough. Eventually, he was accepted. Overall, his gait deteriorated during the admission and family was counseled that it is a poor prognosis. The is no longer able to care for him in the home. PHYSICAL EXAMINATION: VITAL SIGNS: On day of discharge are as follows, temperature 36.5, pulse 80, respirations 16, BP 157/78, and O2 sat 98%. MSE: He is nonambulatory, largely in a wheelchair. This is a well-developed, frail male appearing at least stated age. Attention limited. Concentration limited. Speech is normal rate, low volume. Thought process is linear, limited. Thought content, relative poverty of thought. No psychomotor agitation. No psychomotor retardation. Denied auditory, visual, or tactile hallucinations. Denied suicidal intent or plan. Denied hopelessness, helplessness. Memory impaired. Insight limited. Judgment impaired. Fund of knowledge were below average. DISCHARGE INSTRUCTIONS: The patient will need 24/7 care in assistance in addition to his mobility challenges as well as colostomy care. Prognosis is guarded to poor. ��������������������������������������������� <ELECTRONICALLY SIGNED> ���������������������������������������� By: Juanito Guardado DO ��������������������������������������������� 04/22/19 [id number] Juanito Guardado DO /nt
[2019-04-26] MEDS ORDERED: FINASTERIDE5 MG PO (12:45)
== END 2019-04-21 12:20 | DRG 57 ==
LOC: SBH
PROVIDERS: ADMIT Psychiatry & Neurology Psychiatry
PROC: 2W3BX1Z Immobilization of Left Upper Arm using Splint (ICD-10-PCS; principal; 2019-03-30)
DX: G30.9 Alzheimer's disease, unspecified (principal); F01.51 Vascular dementia, unspecified severity, with behavioral disturbance; F02.81 Dementia in other diseases classified elsewhere, unspecified severity, with behavioral disturbance; M84.48XA Pathological fracture, other site, initial encounter for fracture; E78.5 Hyperlipidemia, unspecified; N40.0 Benign prostatic hyperplasia without lower urinary tract symptoms; I10 Essential (primary) hypertension; F29 Unspecified psychosis not due to a substance or known physiological condition; Z79.82 Long term (current) use of aspirin; Z79.899 Other long term (current) drug therapy; Z85.038 Personal history of other malignant neoplasm of large intestine; Z93.3 Colostomy status; Z98.49 Cataract extraction status, unspecified eye; Z82.49 Family history of ischemic heart disease and other diseases of the circulatory system; Z87.891 Personal history of nicotine dependence; Z93.2 Ileostomy status
CPT/HCPCS: 10880